=== PATIENT | female | born 1935 | race Caucasian/White ===

== ENCOUNTER → 2016-07-06 | Outpatient (CLI) | payer MEDICARE ==
--- NOTE | 2016-07-06 14:47 | XR ---
EXAMINATION TYPE: XR chest 2V DATE OF EXAM: 07/06/2016 2:29 PM COMPARISON: 05/31/2015 HISTORY: 80-year-old female after scarring heart disease, hypertension TECHNIQUE: Frontal and lateral views FINDINGS: Left anterior chest wall ICD generator with right ventricular lead. Median sternotomy wires are prese nt with post-CABG clips in the mediastinum. Partially visualized ACDF hardware. Heart remains upper limits of normal in size. Continued elevation of the left hemidiaphragm. No conso lidation or pleural effusion. IMPRESSION: Continued elevation of the left hemidiaphragm. No acute pulmonary process.
== END ==
LOC: RADXRMAIN 14:13
PROVIDERS: ATTEND Internal Medicine
DX: I25.10 Atherosclerotic heart disease of native coronary artery without angina pectoris (principal); I10 Essential (primary) hypertension
CPT/HCPCS: 71020

== ENCOUNTER 2017-09-20 13:01 | Emergency (ER) | payer MEDICARE ==
[2017-09-20 13:06] VITALS: RESP 18
--- NOTE | 2017-09-20 13:33 | ED ---
General Adult HPI - General Chief complaint: Extremity Injury, Lower Stated complaint: fall, rt knee injury Time Seen by Provider: 09/20/17 13:05 Source: patient, RN notes reviewed Mode of arrival: wheelchair Limitations: no limitations - History of Present Illness Initial comments: This is an 81-year-old female who comes in Any of right knee pain. Patient states the pain is in the inferior aspect of the right knee. Patient states she missed a step at home and since then is having some right knee pain patient denies any hip or ankle pain. Patient denies any swelling. Patient states when she sits down is very difficult to get up when she moves around she feels a lot better and is able to get around but getting up from a sitting position is quite difficult. - Related Data Home Medications Medication Instructions Recorded Confirmed Aspirin 162 mg PO DAILY 08/27/13 09/20/17 Carvedilol [Coreg] 12.5 mg PO BID 08/27/13 09/20/17 Quinapril HCl [Accupril] 10 mg PO DAILY 08/27/13 09/20/17 Sotalol [Betapace] 120 mg PO BID 08/27/13 09/20/17 glipiZIDE [Glucotrol] 5 mg PO BID 08/27/13 09/20/17 metFORMIN HCL [Metformin HCl ER] 1,000 mg PO HS 08/27/13 09/20/17 Spironolactone [Aldactone] 12.5 mg PO DAILY 09/20/13 09/20/17 Simvastatin [Zocor] 40 mg PO QAM 05/31/15 09/20/17 Levothyroxine Sodium [Synthroid] 88 mcg PO DAILY 09/20/17 09/20/17 Previous Rx's Medication Instructions Recorded Clopidogrel Bisulfate [Plavix] 75 mg PO DAILY #30 tab 06/02/15 Hydrocodone/Acetaminophen [[place] 0.5 tab PO Q4HR PRN #9 tab 09/20/17 5-325] Allergies Allergy/AdvReac Type Severity Reaction Status Date / Time No Known Allergies Allergy Verified 09/20/17 13:21 Review of Systems ROS Statement: Those systems with pertinent positive or pertinent negative responses have been documented in the HPI. ROS Other: All systems not noted in ROS Statement are negative. Past Medical History Past Medical History: CVA/TIA, Diabetes Mellitus, Pulmonary Embolus (PE), Thyroid Disorder Additional Past Medical History / Comment(s): ventricular tachycardia, TIA 2013 History of Any Multi-Drug Resistant Organisms: None Reported Past Surgical History: AICD, Cardiac Ablation, Cholecystectomy, Coronary Bypass/ CABG, Hysterectomy Additional Past Surgical History / Comment(s): cervical fusion, quad. bypass Past Anesthesia/Blood Transfusion Reactions: No Reported Reaction Type of Cardiac Device: AICD Device Placement Date:: 2008 Past Psychological History: No Psychological Hx Reported Smoking Status: Never smoker Past Alcohol Use History: Rare Past Drug Use History: None Reported - Past Family History Mother Family Medical History: Dementia Father Family Medical History: Myocardial Infarction ([place]) General Exam - General Exam Comments Initial Comments: GENERAL Patient is well-developed and well-nourished. Patient is in mild distress. EYES Patient's pupils are equal and round. Extraocular motion is intact SKIN Unremarkable NEURO The patient is alert and oriented 3 PYSCH Patient has normal interpersonal interactions. MUSCULOSKELETAL Right knee patient has tenderness at the patellar tendon. There is no obvious swelling. There is no ligamentous laxity noted however she does have medial lateral pain with strain Limitations: no limitations Course Vital Signs 09/20/17 13:04 Temperature 98.4 F Pulse Rate 67 Respiratory 18 Rate Blood Pressure 98/61 O2 Sat by Pulse 96 Oximetry Medical Decision Making - Medical Decision Making X-ray was suspicious of a tibial plateau fracture site CAT scan the knee that showed a definite tibial plateau fracture with vertical component. I spoke with Rina segura [facility] he wanted the patient in a knee immobilizer and to follow-up with them in the office. Disposition Clinical Impression: Tibial plateau fracture Disposition: HOME SELF-CARE Instructions: Leg Fracture (ED) Prescriptions: Hydrocodone/Acetaminophen [[place] 5-325] 0.5 tab PO Q4HR PRN #9 tab PRN Reason: Pain Is patient prescribed a controlled substance at d/c from ED?: Yes When asked, does pt state using other controlled substances?: No If prescribed controlled substance>3 days was MAPS reviewed?: Prescribed <3 Days If opioid is for acute pain is fill amount 7 days or less?: Yes Referrals: Ko Cisneros MD [Primary Care Provider] - 1-2 days Time of Disposition: 16:36
--- NOTE | 2017-09-20 14:12 | XR ---
EXAMINATION TYPE: XR knee complete RT DATE OF EXAM: 09/20/2017 COMPARISON: NONE HISTORY: 80-year-old female right knee pain after fall on patella. TECHNIQUE: 3 views FINDINGS: Osteopenia. Possible subtle depression of the articular surface of the lateral tibial plateau versus projectional artifact. There is tricompartmental degenerative spurring. Small knee joint effusion. Ex tensor mechanism intact. IMPRESSION: Osteopenia with possible minimally depressed lateral tibial plateau fracture versus projectional cyril fact. Small knee joint effusion.
--- NOTE | 2017-09-20 15:15 | CT ---
EXAMINATION TYPE: CT knee RT wo con DATE OF EXAM: 09/20/2017 COMPARISON: Radiograph same day HISTORY: 81-year-old female Right knee pain after fall injury TECHNIQUE: Contiguous axial scanning of the right knee without IV contrast. Coronal and sagittal reyes nstructions performed. CT DLP: 263 mGycm Automated exposure control for dose reduction was used. FINDINGS: A mildly comminuted impaction fracture of the articular surface of the lateral tibial plateau. A larg e articular based impaction fracture fragment within the anterior weightbearing aspect of the lateral tibial plateau measures 1.6 cm wide by 1.5 cm craniocaudal by 1.7 cm AP. This is depressed by 3 mm a nd slightly rotated laterally. Additional vertical component of the fracture oriented in the sagittal plane along the anterolateral margin of the epiphysis and metaphysis. Fracture extends centrally to involve the lateral tibial spine. There is a moderate knee joint effusion. Degenerative joint space narrowing and tricompartmental dege nerative spurring. Extensor mechanism is intact no Maddox's cyst. No patellar fracture. IMPRESSION: 1. MILDLY COMMINUTED IMPACTION FRACTURE INVOLVING THE ARTICULAR SURFACE OF THE LATERAL TIBIAL PLATEAU . THERE IS 3 MM OF DEPRESSION OF THE ARTICULAR SURFACE AND SLIGHT LATERAL ROTATION OF THE 1.7 CM FRAC TURE FRAGMENT. 2. A COMPONENT OF THE FRACTURE HAS A VERTICAL COMPONENT THROUGH THE ANTEROLATERAL EPIPHYSIS AND METAP HYSIS AND THE FRACTURE ALSO EXTENDS CENTRALLY TO INVOLVE THE LATERAL TIBIAL SPINE. 3. MODERATE KNEE JOINT EFFUSION. 4. TRICOMPARTMENTAL OSTEOARTHROSIS.
[2017-09-20 16:48] VITALS: BP 122/67; PULSE 66; TEMP 98
== END 2017-09-20 16:56 | disposition home or self-care (01) ==
LOC: EC 13:01
DX: S82.141A Displaced bicondylar fracture of right tibia, initial encounter for closed fracture (principal); E11.9 Type 2 diabetes mellitus without complications; E07.9 Disorder of thyroid, unspecified; Z86.73 Personal history of transient ischemic attack (TIA), and cerebral infarction without residual deficits; Z86.711 Personal history of pulmonary embolism; Z79.82 Long term (current) use of aspirin; Z79.84 Long term (current) use of oral hypoglycemic drugs; Z79.899 Other long term (current) drug therapy; Z95.1 Presence of aortocoronary bypass graft; Z95.810 Presence of automatic (implantable) cardiac defibrillator; W01.0XXA Fall on same level from slipping, tripping and stumbling without subsequent striking against object, initial encounter; Y92.009 Unspecified place in unspecified non-institutional (private) residence as the place of occurrence of the external cause
CPT/HCPCS: 73562; 73700; 99284; L1830 ×2

== ENCOUNTER 2017-11-09 14:22 | Emergency (ER) | payer MEDICARE ==
--- NOTE | 2017-11-09 14:39 | ED ---
General Adult HPI - General Chief complaint: Shortness of Breath Stated complaint: Dyspnea Time Seen by Provider: 11/09/17 14:27 Source: patient, EMS, RN notes reviewed Mode of arrival: EMS Limitations: no limitations - History of Present Illness Initial comments: Patient is a pleasant 81-year-old female presenting to the emergency Department with complaints of difficulty in breathing. Onset of symptoms was this morning. Patient has also felt somewhat lightheaded and fatigued. Patient states it's difficult for her to walk just a few steps. Patient unclear of history of previous similar symptoms. Patient denies any chest discomfort. No cough or fever. No leg pain or leg swelling. Patient has had a couple episodes of diarrhea. No black tarry stool. - Related Data Home Medications Medication Instructions Recorded Confirmed Aspirin 81 mg PO DAILY 08/27/13 11/09/17 Carvedilol [Coreg] 12.5 mg PO BID 08/27/13 11/09/17 Quinapril HCl [Accupril] 10 mg PO DAILY 08/27/13 11/09/17 Sotalol [Betapace] 120 mg PO BID 08/27/13 11/09/17 glipiZIDE [Glucotrol] 5 mg PO BID 08/27/13 11/09/17 metFORMIN HCL [Metformin HCl ER] 1,000 mg PO HS 08/27/13 11/09/17 Spironolactone [Aldactone] 12.5 mg PO DAILY 09/20/13 11/09/17 Simvastatin [Zocor] 40 mg PO QAM 05/31/15 11/09/17 Levothyroxine Sodium [Synthroid] 88 mcg PO DAILY 09/20/17 11/09/17 Multivitamins, Thera [Multivitamin 1 tab PO DAILY 11/09/17 11/09/17 (formulary)] Previous Rx's Medication Instructions Recorded Clopidogrel Bisulfate [Plavix] 75 mg PO DAILY #30 tab 06/02/15 Allergies Allergy/AdvReac Type Severity Reaction Status Date / Time No Known Allergies Allergy Verified 11/09/17 14:42 Review of Systems ROS Statement: Those systems with pertinent positive or pertinent negative responses have been documented in the HPI. ROS Other: All systems not noted in ROS Statement are negative. Constitutional: Denies: fever Eyes: Denies: eye pain ENT: Denies: ear pain Respiratory: Reports: dyspnea. Denies: cough Cardiovascular: Denies: chest pain Endocrine: Reports: fatigue Gastrointestinal: Reports: diarrhea. Denies: abdominal pain Genitourinary: Denies: dysuria Musculoskeletal: Denies: back pain Skin: Denies: rash Neurological: Denies: headache Past Medical History Past Medical History: CVA/TIA, Diabetes Mellitus, Myocardial Infarction ([place]), Pulmonary Embolus (PE), Thyroid Disorder Additional Past Medical History / Comment(s): ventricular tachycardia, TIA 2013 History of Any Multi-Drug Resistant Organisms: None Reported Past Surgical History: AICD, Cardiac Ablation, Cholecystectomy, Coronary Bypass/ CABG, Hysterectomy Additional Past Surgical History / Comment(s): cervical fusion, quad. bypass Past Anesthesia/Blood Transfusion Reactions: No Reported Reaction Type of Cardiac Device: AICD Device Placement Date:: 2008 Past Psychological History: No Psychological Hx Reported Smoking Status: Never smoker Past Alcohol Use History: Rare Past Drug Use History: None Reported - Past Family History Mother Family Medical History: Dementia Father Family Medical History: Myocardial Infarction ([place]) General Exam Limitations: no limitations General appearance: alert, in no apparent distress Head exam: Present: atraumatic Eye exam: Present: normal appearance, PERRL ENT exam: Present: normal oropharynx Neck exam: Present: normal inspection Respiratory exam: Present: normal lung sounds bilaterally Cardiovascular Exam: Present: regular rate, normal rhythm GI/Abdominal exam: Present: soft. Absent: tenderness Extremities exam: Present: normal inspection. Absent: pedal edema, calf tenderness Neurological exam: Present: alert Psychiatric exam: Present: normal affect, normal mood Skin exam: Present: normal color Course Vital Signs 11/09/17 11/09/17 14:29 14:43 Temperature 96.9 F L Pulse Rate 84 Respiratory 26 H 26 H Rate Blood Pressure 125/69 O2 Sat by Pulse 98 Oximetry - Reevaluation(s) Reevaluation #1: 11/09/17 16:06 Case was discussed in detail with Dr. Sena who does recommend talking with Dr. Martinez, vascular surgeon and [facility]. He did not feel patient needed to be intubated at this time. Case was discussed with Dr. Martinez who will accept patient for transfer for thrombolysis. Patient and family updated. They're having family discussion regarding having the procedure done. 11/09/17 16:21 Discussion again had with patient and family and they are agreeable with having procedure done and transfer. Case was also discussed with Dr. Cevallos and [facility] Cornejo, who will accept transfer. EKG Findings - EKG Comments: EKG Findings:: Sinus rhythm at 71. AK 190. QRS 116. QT 444. QTC 482. Normal axis. Incomplete right bundle-branch block. PVCs present. Borderline inferior Q waves. Nonspecific ST-T. Previous EKG reviewed dated 06/01/2015. Medical Decision Making - Lab Data Result diagrams: 11/09/17 14:31 11/09/17 14:31 Lab Results 11/09/17 11/09/17 11/09/17 Range/Units 14:31 14:31 14:31 WBC 9.0 (3.8-10.6) k/uL RBC 3.83 (3.80-5.40) m/uL Hgb 11.3 L (11.4-16.0) gm/dL Hct 35.9 (34.0-46.0) % MCV 93.8 (80.0-100.0) fL MCH 29.6 (25.0-35.0) pg MCHC 31.6 (31.0-37.0) g/dL RDW 12.8 (11.5-15.5) % Plt Count 178 (150-450) k/uL Neutrophils % 79 % Lymphocytes % 13 % Monocytes % 5 % Eosinophils % 1 % Basophils % 1 % Neutrophils # 7.2 (1.3-7.7) k/uL Lymphocytes # 1.2 (1.0-4.8) k/uL Monocytes # 0.4 (0-1.0) k/uL Eosinophils # 0.1 (0-0.7) k/uL Basophils # 0.1 (0-0.2) k/uL Hypochromasia Slight PT (9.0-12.0) sec INR (<1.2) APTT (22.0-30.0) sec D-Dimer (<0.60) mg/L FEU Sodium 137 (137-145) mmol/L Potassium 5.3 H (3.5-5.1) mmol/L Chloride 106 (98-107) mmol/L Carbon Dioxide 22 (22-30) mmol/L Anion Gap 9 mmol/L BUN 25 H (7-17) mg/dL Creatinine 0.91 (0.52-1.04) mg/dL Est GFR (CKD-EPI)AfAm 67 (>60 ml/min/1.73 sqM) Est GFR (CKD-EPI)NonAf 59 (>60 ml/min/1.73 sqM) Glucose 211 H (74-99) mg/dL Calcium 9.1 (8.4-10.2) mg/dL Total Bilirubin 0.8 (0.2-1.3) mg/dL AST 22 (14-36) U/L ALT 20 (9-52) U/L Alkaline Phosphatase 66 (38-126) U/L Total Creatine Kinase 34 (30-135) U/L CK-MB (CK-2) 2.2 (0.0-2.4) ng/mL CK-MB (CK-2) Rel Index 6.5 Troponin I 0.419 H* (0.000-0.034) ng/mL NT-Pro-B Natriuret Pep pg/mL Total Protein 6.1 L (6.3-8.2) g/dL Albumin 3.5 (3.5-5.0) g/dL 11/09/17 11/09/17 Range/Units 14:31 14:31 WBC (3.8-10.6) k/uL RBC (3.80-5.40) m/uL Hgb (11.4-16.0) gm/dL Hct (34.0-46.0) % MCV (80.0-100.0) fL MCH (25.0-35.0) pg MCHC (31.0-37.0) g/dL RDW (11.5-15.5) % Plt Count (150-450) k/uL Neutrophils % % Lymphocytes % % Monocytes % % Eosinophils % % Basophils % % Neutrophils # (1.3-7.7) k/uL Lymphocytes # (1.0-4.8) k/uL Monocytes # (0-1.0) k/uL Eosinophils # (0-0.7) k/uL Basophils # (0-0.2) k/uL Hypochromasia PT 10.5 (9.0-12.0) sec INR 1.1 (<1.2) APTT 22.8 (22.0-30.0) sec D-Dimer 11.25 H (<0.60) mg/L FEU Sodium (137-145) mmol/L Potassium (3.5-5.1) mmol/L Chloride (98-107) mmol/L Carbon Dioxide (22-30) mmol/L Anion Gap mmol/L BUN (7-17) mg/dL Creatinine (0.52-1.04) mg/dL Est GFR (CKD-EPI)AfAm (>60 ml/min/1.73 sqM) Est GFR (CKD-EPI)NonAf (>60 ml/min/1.73 sqM) Glucose (74-99) mg/dL Calcium (8.4-10.2) mg/dL Total Bilirubin (0.2-1.3) mg/dL AST (14-36) U/L ALT (9-52) U/L Alkaline Phosphatase (38-126) U/L Total Creatine Kinase (30-135) U/L CK-MB (CK-2) (0.0-2.4) ng/mL CK-MB (CK-2) Rel Index Troponin I (0.000-0.034) ng/mL NT-Pro-B Natriuret Pep 1820 pg/mL Total Protein (6.3-8.2) g/dL Albumin (3.5-5.0) g/dL - Radiology Data Radiology results: image reviewed (Computed tomography scan of the chest shows bilateral pulmonary embolism starting at the distal main. There is also flattening of the cardiac septum. Chest x-ray shows no acute process.) Critical Care Time Critical Care Time: Yes Total Critical Care Time: 33 Disposition Clinical Impression: Acute massive pulmonary embolism Disposition: OTHER INSTITUTION NOT DEFINED Condition: Serious Is patient prescribed a controlled substance at d/c from ED?: No Referrals: Ko Cisneros MD [Primary Care Provider] - 1-2 days Time of Disposition: 16:23 - Out of Hospital Transfer - Req. Specs Out of Hospital Transfer - Requested Specifics: Other Emergency Center
[2017-11-09 14:56] LABS: Basophils # (A) 0.1 k/uL (0-0.2); Basophils % (A) 1 %; Eosinophils # (A) 0.1 k/uL (0-0.7); Eosinophils % (A) 1 %; HCT 35.9 % (34.0-46.0); HGB 11.3 gm/dL (11.4-16.0); Hypochromasia Slight; Lymphocytes # (A) 1.2 k/uL (1.0-4.8); Lymphocytes % (A) 13 %; MCH 29.6 pg (25.0-35.0); MCHC 31.6 g/dL (31.0-37.0); MCV 93.8 fL (80.0-100.0); Mean Platelet Volume 9.2; Monocytes # (A) 0.4 k/uL (0-1.0); Monocytes % (A) 5 %; Neutrophils # (A) 7.2 k/uL (1.3-7.7); Neutrophils % (A) 79 %; Platelet Count 178 k/uL (150-450); RBC 3.83 m/uL (3.80-5.40); RDW 12.8 % (11.5-15.5)
--- NOTE | 2017-11-09 14:59 | XR ---
EXAMINATION TYPE: XR chest 2V DATE OF EXAM: 11/09/2017 COMPARISON: 07/06/2016 HISTORY: Shortness of breath TECHNIQUE: Frontal and lateral views of the chest are obtained. FINDINGS: Scattered senescent parenchymal changes noted. Hyperinflation compatible with COPD. No evidence for infiltrate. No evidence for atelectasis. Chronic elevation left hemidiaphragm. Heart size is stable. Mediastinal structures are stable and grossly unremarkable. No evidence for hilar prominence. Degenerative changes dorsal spine. IMPRESSION: 1. No evidence for acute pulmonary disease.
[2017-11-09 15:05] LABS: Albumin 3.5 g/dL (3.5-5.0); Calcium 9.1 mg/dL (8.4-10.2); Potassium 5.3 mmol/L (3.5-5.1); Total Bilirubin 0.8 mg/dL (0.2-1.3); Total Protein 6.1 g/dL (6.3-8.2)
[2017-11-09 15:10] LABS: ABG Base Excess -1.6 mmol/L; ABG HCO3 23 mmol/L (21-25); ABG Oxygen Saturation 78.9 % (94-97); ABG PCO2 33 mmHg (35-45); ABG PH 7.44 (7.35-7.45); ABG TCO2 24 mmol/L (19-24)
[2017-11-09 15:23] LABS: INR 1.1 (<1.2); Partial Thromboplastin Time 22.8 sec (22.0-30.0); Prothrombin Time 10.5 sec (9.0-12.0)
[2017-11-09 15:27] LABS: D-Dimer 11.25 mg/L FEU (<0.60)
[2017-11-09 15:28] LABS: Creatine Kinase MB 2.2 ng/mL (0.0-2.4)
[2017-11-09 15:38] LABS: Troponin I 0.419 ng/mL (0.000-0.034)
[2017-11-09] MEDS ORDERED: HEPARIN SODIUM,PORCINE 5,000 UNIT/ML 1 ML VIAL IV PRN (15:45)
[2017-11-09] MEDS ORDERED: HEPARIN SOD,PORK IN 0.45% NACL 25,000 UNIT in 0.45% NACL 1 500ML.BAG IV SCH (15:45)
[2017-11-09] MEDS ORDERED: HEPARIN SODIUM,PORCINE 10,000 UNIT/ML 1 ML VIAL IV ONE (15:45)
--- NOTE | 2017-11-09 16:06 | CT ---
EXAMINATION TYPE: CT angio chest DATE OF EXAM: 11/09/2017 COMPARISON: Radiograph same day HISTORY: 81-year-old female Shortness of breath, history of PE. TECHNIQUE: Contiguous axial scanning of the chest performed with IV Contrast, patient injected with 8 0 mL of Isovue 370. Coronal/sagittal MIP reconstructions performed. CT DLP: 268.6 mGycm Automated exposure control for dose reduction was used. FINDINGS: Heart is enlarged with left atrial and left ventricular dilatation. However, there is flattening and slight leftward bowing of the intraventricular septum which is very suspicious despite the left ventr icle remaining larger than the right. Median sternotomy wires are present with post-CABG changes. 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 Bovine configuration to the aortic arch. Large caliber to the main right and left pulmonary arteries at 2.8 and 3.0 cm, respectively. There is moderate burden of bilateral pulmonary emboli, right greater than left extending from the bilateral distal main pulmonary arteries throughout the lobar branches and some of the proximal segmental branc hes. No thoracic lymphadenopathy. No consolidation or pleural effusion. Chronic volume loss at the left base with elevation of the left hemidiaphragm. Small hiatal hernia. Visualized upper abdomen shows no gross evaluate. Bones: ACDF hardware. Left anterior chest wall AICD generator with right atrial and right ventricular leads. IMPRESSION: 1. EXAM POSITIVE FOR BILATERAL PULMONARY EMBOLI WITH MODERATE BURDEN, RIGHT GREATER THAN LEFT. CLOT E XTENDS FROM THE DISTAL ASPECT OF THE MAIN PULMONARY ARTERIES THROUGHOUT THE LOBAR BRANCHES. 2. PULMONARY ARTERIAL HYPERTENSION WITH INTERVENTRICULAR SEPTAL FLATTENING WHICH IS VERY SUSPICIOUS F OR RIGHT HEART STRAIN. UNDERLYING LA AND LV DILATATION LIKELY SECONDARY TO CHRONIC CHF. THIS DOES NOT ALLOW FOR ABNORMAL ELEVATION OF THE RV LV RATIO. 3. SMALL HIATAL HERNIA. Critical findings called to Dr. Raya in the ER at 3:50 PM.
[2017-11-09 16:42] LABS: ABG PO2 42 mmHg (83-108)
[2017-11-09 16:53] VITALS: BP 128/65; PULSE 66; RESP 22; TEMP 97.3
== END 2017-11-09 16:50 | disposition other institution (70) ==
LOC: EC 14:22
DX: I26.99 Other pulmonary embolism without acute cor pulmonale (principal); E11.9 Type 2 diabetes mellitus without complications; I25.2 Old myocardial infarction; E07.9 Disorder of thyroid, unspecified; Z79.82 Long term (current) use of aspirin; Z79.84 Long term (current) use of oral hypoglycemic drugs; Z79.899 Other long term (current) drug therapy; Z95.810 Presence of automatic (implantable) cardiac defibrillator; Z95.1 Presence of aortocoronary bypass graft
CPT/HCPCS: 36415; 36600; 71046; 71275; 80053; 82550; 82553; 82805; 83880; 84484; 85025; 85379; 85610; 85730; 93005; 96365; 96376; 99291

== ENCOUNTER → 2019-03-28 | Outpatient (CLI) | payer MEDICARE, OTHER ==
[2019-03-28 12:41] LABS: HCT 38.5 % (34.0-46.0); MCH 24.4 pg (25.0-35.0); MCV 93.7 fL (80.0-100.0); Mean Platelet Volume 9.6; Platelet Count 181 k/uL (150-450); RBC 4.11 m/uL (3.80-5.40); RDW 12.4 % (11.5-15.5); WBC 6.7 k/uL (3.8-10.6)
[2019-03-28 12:42] LABS: Potassium 4.3 mmol/L (3.5-5.1)
== END | disposition home or self-care (01) ==
LOC: LABPAT 11:18
PROVIDERS: ATTEND Internal Medicine Clinical Cardiac Electrophysiology
DX: Z01.812 Encounter for preprocedural laboratory examination (principal); I25.5 Ischemic cardiomyopathy; I47.2 Ventricular tachycardia
CPT/HCPCS: 36415; 80051; 82565; 82947; 84520; 85027

== ENCOUNTER 2019-04-10 08:35 | Day surgery (SDC) | payer MEDICARE, OTHER ==
[2019-04-04 16:14] VITALS: BMI 27.8
[~2019-04-10 08:35] MED LIST: LACTATED RINGERS 1,000 ML IV SCH; SODIUM CHLORIDE 0.9% 1,000 ML IV SCH
[2019-04-10] MEDS ORDERED: ceFAZolin 1,000 MG in SODIUM CHLORIDE 0.9% IRRIGATIO 250 ML IRRIGATION ONE (09:00)
[2019-04-10 09:16] LABS: Glucose,Whole Blood 178 mg/dL (75-99)
[2019-04-10] MEDS ORDERED: SODIUM CHLORIDE 0.9% 500 ML 500 ML IV ONE (09:29)
[2019-04-10] MEDS ORDERED: LIDOCAINE 1% INJ 10MG/ML (20 ML MDV) ONE (09:30)
[2019-04-10] MEDS ORDERED: PROPOFOL 10 MG/ML 20 ML VIAL IV ONE (10:08)
[2019-04-10] MEDS ORDERED: fentaNYL (PF) 50 MCG/ML 2 ML AMP ONE (10:08)
[2019-04-10] MEDS ORDERED: MIDAZOLAM 2 MG/2 ML VIAL ONE (10:08)
[2019-04-10] MEDS ORDERED: LIDOCAINE 1% INJ 10MG/ML (20 ML MDV) SQ ONE (11:05)
[2019-04-10] MEDS ORDERED: ACETAMINOPHEN TAB 325 MG TAB PO PRN (11:42)
[2019-04-10 12:05] LABS: Glucose,Whole Blood 141 mg/dL (75-99)
--- NOTE | 2019-04-10 12:26 | CE ---
CARDIAC ELECTROPHYSIOLOGY REPORT Marce Marti is an 83-year-old female with known cardiomyopathy. She has history of class 3 CHF, a single-chamber ICD originally implanted for ventricular fibrillation. She has known coronary artery disease, status post coronary artery bypass grafting, old myocardial infarction and ischemic cardiomyopathy. She is on sotalol for suppression of VT. Her device is at [facility] and she is brought in for an ICD generator change. Patient was brought to the EP lab in a fasting state. Written informed consent was obtained prior to the procedure. The left shoulder area was prepped and draped as per protocol and 1% lidocaine was used for local anesthesia. An incision was made directly over the previous surgical site and carried down to the level of the generator. The generator was explanted. The leads were inspected. The partial capsulectomy was performed. Pocket was irrigated with antibiotic solution. The new generator was implanted and secured to the underlying pectoralis muscle and the wound was closed in 3 layers and dressed per protocol. The explanted generator was a [employer] ICD model #K254OIX Virtuoso II VR, serial #[id number]. The newly implanted generator was Medtronic Visia model #AKKN8K9, serial #[id number]. The patient has a [employer] ICD lead model #0185, serial #[id number] that was originally implanted in June of 2004. The pacing threshold 0.75 V at 0.4 milliseconds, pacing impedance of 361 ohms. R-waves 8.8 mV. DFT TESTING UNDER ANESTHESIA: Shock and T-wave protocol was used to induce ventricular fibrillation this was adequately and appropriately detected at least sensitivity and successfully internally defibrillated with a 10-joule shock. The charge time was 2 seconds. Shock impedance 41 ohms. No post shock noise. No drop outs. The device was then programmed to detect VT at 154 beats per minute and VF at 210 beats per minute. Appropriate antitachycardia pacing cardioversion and defibrillation programmed. First cardioversion 10 joules and first defibrillation at 20 joules. The patient tolerated the procedure well without any acute complications. RESULT: Successful single-chamber ICD generator change. DFT at or below 10 joules. MMODL / IJN: [id number] /
--- NOTE | 2019-04-10 12:26 | LTR ---
April 10, 2019 Re: Marce Marti Dear Ko: Marce Marti underwent an ICD generator change successfully without any acute complications. As you know, she has a history of ventricular fibrillation and VT and is on sotalol. Her medications will remain unchanged and she will continue to follow with you and we will see her in the device clinic in about 5 days. Thank you for entrusting us in the care of your patient. Warm regards. Sincerely, MD ESTELLA Panda / ALEX: [id number] /
[2019-04-10] MEDS: glipiZIDE 5 MG TAB PO SCH ×2 (14:31)
[2019-04-10] MEDS: SOTALOL 120 MG TAB PO SCH ×2 (14:31→20:04)
[2019-04-10] MEDS: CARVEDILOL 12.5 MG TAB PO SCH ×2 (14:31)
[2019-04-10] MEDS: LEVOTHYROXINE 88 MCG TAB PO SCH (14:31)
[2019-04-10 15:52] VITALS: RESP 18
[2019-04-10 16:40] LABS: Glucose,Whole Blood 119 mg/dL (75-99)
[2019-04-10 19:56] LABS: Glucose,Whole Blood 93 mg/dL (75-99)
[2019-04-10] MEDS ORDERED: metFORMIN 500 MG TAB PO SCH (21:00)
[2019-04-11] MEDS: LEVOTHYROXINE 88 MCG TAB PO SCH (03:09)
[2019-04-11 06:36] LABS: Glucose,Whole Blood 123 mg/dL (75-99)
[2019-04-11 07:30] VITALS: BP 145/76; PULSE 58; TEMP 97.3
[2019-04-11] MEDS: CARVEDILOL 12.5 MG TAB PO SCH (08:38)
[2019-04-11] MEDS: glipiZIDE 5 MG TAB PO SCH (08:38)
[2019-04-11] MEDS: SOTALOL 120 MG TAB PO SCH (08:39)
[2019-04-11] MEDS ORDERED: ASPIRIN 81 MG PO SCH (09:00)
[2019-04-11] MEDS ORDERED: SPIRONOLACTONE 25 MG TAB PO SCH (09:00)
[2019-04-11] MEDS ORDERED: CLOPIDOGREL 75 MG TAB PO SCH (09:00)
[2019-04-11] MEDS ORDERED: LISINOPRIL 10 MG TAB PO SCH (09:00)
[2019-04-11] MEDS ORDERED: ATORVASTATIN 20 MG TAB PO SCH (09:00)
--- NOTE | 2019-04-11 10:06 | P.DS ---
Providers Attending physician: Noah Johnson Primary care physician: [facility] Hospital Course: This is a pleasant 83-year-old female past medical history significant for ischemic cardiomyopathy, hypertension, coronary artery disease and history of ventricular tachycardia and fibrillation. She underwent successful single- chamber ICD generator change with DFT out of 10 J. Insertion site is clean, dry and intact with dressing in place. No evidence of erythema, drainage tenderness or swelling. She is seen and examined resting comfortably and plan the chest. She has no symptoms of chest pain, shortness of breath, dizziness or palpitations. Blood pressure is 145/76 heart rate 58 afebrile maintaining oxygen saturation. Currently maintained on aspirin 81 mg daily, atorvastatin 20 mg daily, carvedilol 12.5 mg twice a day, Plavix 75 mg daily, lisinopril 10 mg daily, sotalol 120 mg twice a day and Aldactone 12.5 mg daily. Follow-up in the office with Dr. Swartz in one week and Dr. Miles in 3 months. She has been advised to keep the insertion area clean and dry for 5 days. Plan - Discharge Summary Discharge Rx Participant: Yes New Discharge Prescriptions: Continue Aspirin 81 mg PO DAILY Carvedilol [Coreg] 12.5 mg PO BID Sotalol [Betapace] 120 mg PO BID metFORMIN HCL [Metformin HCl ER] 1,000 mg PO HS glipiZIDE [Glucotrol] 5 mg PO BID Quinapril HCl [Accupril] 10 mg PO DAILY Spironolactone [Aldactone] 12.5 mg PO DAILY Simvastatin [Zocor] 40 mg PO QAM Clopidogrel Bisulfate [Plavix] 75 mg PO DAILY #30 tab Levothyroxine Sodium [Synthroid] 88 mcg PO DAILY Multivitamins, Thera [Multivitamin (formulary)] 1 tab PO DAILY Discharge Medication List Aspirin 81 mg PO DAILY 08/27/13 [History] Carvedilol [Coreg] 12.5 mg PO BID 08/27/13 [History] Quinapril HCl [Accupril] 10 mg PO DAILY 08/27/13 [History] Sotalol [Betapace] 120 mg PO BID 08/27/13 [History] glipiZIDE [Glucotrol] 5 mg PO BID 08/27/13 [History] metFORMIN HCL [Metformin HCl ER] 1,000 mg PO HS 08/27/13 [History] Spironolactone [Aldactone] 12.5 mg PO DAILY 09/20/13 [History] Simvastatin [Zocor] 40 mg PO QAM 05/31/15 [History] Clopidogrel Bisulfate [Plavix] 75 mg PO DAILY #30 tab 06/02/15 [Rx] Levothyroxine Sodium [Synthroid] 88 mcg PO DAILY 09/20/17 [History] Multivitamins, Thera [Multivitamin (formulary)] 1 tab PO DAILY 11/09/17 [History] Follow up Appointment(s)/Referral(s): Noah Johnson MD [STAFF PHYSICIAN] - As Needed (Follow-up with Dr. Johnson in 4 months) Dona Davison MD [STAFF PHYSICIAN] - 1 Week Activity/Diet/Wound Care/Special Instructions: Keep wound dry for 5 days No changes in medications Discharge Disposition: HOME SELF-CARE
== END 2019-04-11 10:12 | disposition home or self-care (01) ==
LOC: CATHEP 08:35 → 1SOBS 11:34 → CATHEP 04-11 10:12
PROVIDERS: ATTEND Internal Medicine Clinical Cardiac Electrophysiology
DX: Z45.02 Encounter for adjustment and management of automatic implantable cardiac defibrillator (principal); I95.1 Orthostatic hypotension; I25.10 Atherosclerotic heart disease of native coronary artery without angina pectoris; I11.0 Hypertensive heart disease with heart failure; I50.9 Heart failure, unspecified; I47.2 Ventricular tachycardia; I49.01 Ventricular fibrillation; E78.5 Hyperlipidemia, unspecified; Z86.73 Personal history of transient ischemic attack (TIA), and cerebral infarction without residual deficits; Z95.1 Presence of aortocoronary bypass graft; E11.9 Type 2 diabetes mellitus without complications; Z82.49 Family history of ischemic heart disease and other diseases of the circulatory system; Z86.711 Personal history of pulmonary embolism; Z90.49 Acquired absence of other specified parts of digestive tract; Z98.890 Other specified postprocedural states; I25.2 Old myocardial infarction; Z79.84 Long term (current) use of oral hypoglycemic drugs; Z79.02 Long term (current) use of antithrombotics/antiplatelets; Z79.82 Long term (current) use of aspirin; Z79.890 Hormone replacement therapy; Z79.899 Other long term (current) drug therapy
CPT/HCPCS: 93641; 33262; C1722; J2250; J0690 ×2; J2001; J3010; J2704

== ENCOUNTER → 2019-08-30 | Outpatient (CLI) | payer MEDICARE, OTHER ==
[2019-08-30 16:40] LABS: African American GFR (CKD) 59.5 (60.0-200.0); Calcium 9.3 mg/dL (8.7-10.3); Chol/HDL Ratio 3.08; LDL Cholesterol,Calculated 53.6 mg/dL (0.0-131.0); Magnesium 1.5 mg/dL (1.5-2.4); Non-African American GFR(CKD) 51.3 (60.0-200.0); Potassium 4.5 mmol/L (3.5-5.5); VLDL Calculation 29.4 mg/dL (5.00-40.00)
== END | disposition home or self-care (01) ==
LOC: LABWHC1 09:04
PROVIDERS: ATTEND Physician Assistant
DX: E78.5 Hyperlipidemia, unspecified (principal); I50.9 Heart failure, unspecified
CPT/HCPCS: 36415; 80048; 80061; 83735; 84439; 84443

== ENCOUNTER 2020-01-14 14:44 | Inpatient (IN) | payer MEDICARE, OTHER ==
[2020-01-14] MEDS ORDERED: ACETAMINOPHEN TAB 325 MG TAB PO STA (15:14)
--- NOTE | 2020-01-14 15:21 | ED ---
General Adult HPI - General Chief complaint: Extremity Injury, Upper Stated complaint: R Arm Injury Time Seen by Provider: 01/14/20 14:56 Source: patient, RN notes reviewed Mode of arrival: wheelchair Limitations: no limitations - History of Present Illness Initial comments: 84-year-old female presents to the emergency room for a chief complaint of right arm pain. Patient reports that just prior to arrival she was stopping at door with an outstretched hand. She states the door was very heavy and caused immediate pain and swelling in the back of her hand and elbow. She states it is very painful to move her fingers. She states it is very painful to straighten out her elbow. Patient does take Plavix. Patient has no other complaints at this time including shortness of breath, chest pain, abdominal pain, nausea or vomiting, headache, or visual changes. - Related Data Home Medications Medication Instructions Recorded Confirmed Aspirin 81 mg PO DAILY 08/27/13 01/14/20 Carvedilol [Coreg] 12.5 mg PO BID-W/MEALS 08/27/13 01/14/20 Quinapril HCl [Accupril] 10 mg PO DAILY 08/27/13 01/14/20 glipiZIDE [Glucotrol] 5 mg PO BID-W/MEALS 08/27/13 01/14/20 Spironolactone [Aldactone] 12.5 mg PO DAILY 09/20/13 01/14/20 Simvastatin [Zocor] 40 mg PO DAILY 05/31/15 01/14/20 Levothyroxine Sodium [Synthroid] 88 mcg PO DAILY 09/20/17 01/14/20 Multivitamins, Thera [Multivitamin 1 tab PO DAILY 11/09/17 01/14/20 (formulary)] Sotalol HCl [Betapace] 80 mg PO BID-W/MEALS 01/14/20 01/14/20 metFORMIN HCL [Glucophage] 500 mg PO BID-W/MEALS 01/14/20 01/14/20 Previous Rx's Medication Instructions Recorded Clopidogrel Bisulfate [Plavix] 75 mg PO DAILY #30 tab 06/02/15 Allergies Allergy/AdvReac Type Severity Reaction Status Date / Time No Known Allergies Allergy Verified 01/14/20 16:34 Review of Systems ROS Statement: Those systems with pertinent positive or pertinent negative responses have been documented in the HPI. ROS Other: All systems not noted in ROS Statement are negative. Past Medical History Past Medical History: CVA/TIA, Diabetes Mellitus, Myocardial Infarction ([place]), Pulmonary Embolus ([place]), Thyroid Disorder Additional Past Medical History / Comment(s): ventricular tachycardia, TIA 2013 History of Any Multi-Drug Resistant Organisms: None Reported Past Surgical History: AICD, Cardiac Ablation, Cholecystectomy, Coronary Bypas s/CABG, Hysterectomy Additional Past Surgical History / Comment(s): cervical fusion, quad. bypass Past Anesthesia/Blood Transfusion Reactions: No Reported Reaction Type of Cardiac Device: AICD Device Placement Date:: 2008 Past Psychological History: No Psychological Hx Reported Past Alcohol Use History: Rare Past Drug Use History: None Reported - Past Family History Mother Family Medical History: Dementia Father Family Medical History: Myocardial Infarction ([place]) General Exam - General Exam Comments Initial Comments: Right upper ext: Patient has large contusion noted to the posterior aspect of the right hand as well as contusion to the right dorsal elbow. Radial pulse 2+ in RUE. Capillary refill less than 2 seconds in the right hand. Patient able to move all digits of the right hand although flexion is limited secondary to pain. Patient able to flex right elbow to 90 and extend to 140. No petechial bruising. Sensation intact. Patient has no other complaints at this time including shortness of breath, chest pain, abdominal pain, nausea or vomiting, headache, or visual changes. Limitations: no limitations General appearance: alert, in no apparent distress Head exam: Present: atraumatic, normocephalic, normal inspection Eye exam: Present: normal appearance ENT exam: Present: normal exam, mucous membranes moist Neck exam: Present: normal inspection. Absent: tenderness, meningismus, lymphadenopathy Respiratory exam: Present: normal lung sounds bilaterally. Absent: respiratory distress, wheezes, rales, rhonchi, stridor Cardiovascular Exam: Present: regular rate, normal rhythm, normal heart sounds. Absent: systolic murmur, diastolic murmur, rubs, gallop, clicks Course Vital Signs 01/14/20 01/14/20 14:45 20:02 Temperature 98.7 F Pulse Rate 61 66 Respiratory 18 18 Rate Blood Pressure 148/81 144/68 O2 Sat by Pulse 97 98 Oximetry EKG Findings - EKG Comments: EKG Findings:: Sinus bradycardia, ventricular rate 58, SC interval 210, QTc 459 Procedures - Orthopedic Splinting/Casting Injury #1 Side: left Upper Extremity Injury Location: elbow, wrist Upper Extremity Immobilizer: sugar tong splint (double) Additional Comments: NV intact after splint applied Medical Decision Making - Medical Decision Making Vitals are stable. Patient tried to stop a door today with her right arm when it was closing and had pain in her hand and elbow. Patient has difficulty extending the elbow. Has pain with movement of the fingers and wrist. Limited range of motion of the fingers wrist and elbow. Neurovascular status intact. X-ray of the right hand and forearm shows a distal metaphyseal radial fracture with intra-articular extension. X-ray of the right elbow shows proximal ulnar fracture with intra-articular extension and diastasis of the fracture fragments. Joint effusion noted. Discussed case with cira, he recommends admission under Dr. Shaw with double sugar tong splint - Lab Data Result diagrams: 01/14/20 18:01 01/14/20 18:01 Disposition Clinical Impression: Radial fracture, Ulnar fracture Disposition: ADMITTED IP TO THIS [facility] Is patient prescribed a controlled substance at d/c from ED?: No Time of Disposition: 17:20
--- NOTE | 2020-01-14 16:00 | XR ---
EXAMINATION TYPE: XR forearm RT DATE OF EXAM: 01/14/2020 COMPARISON: None HISTORY: Pain TECHNIQUE: 2 view right forearm FINDINGS: There is a distal radial metaphyseal fracture. This has intra-articular extension. Diffuse soft tissue swelling is present. Structures appear osteopenic. IMPRESSION: 1. Distal metaphyseal radial fracture with intra-articular extension
--- NOTE | 2020-01-14 16:01 | XR ---
EXAMINATION TYPE: XR hand complete RT DATE OF EXAM: 01/14/2020 COMPARISON: None HISTORY: Pain hit door TECHNIQUE: Three-view right hand FINDINGS: There is a distal metaphyseal radial fracture with intra-articular extension. Diffuse soft tissue swelling is present. Some diastases of the proximal portion of the fracture fragment is presen t. There is soft tissue swelling over the dorsum of the hand. Structures are osteopenic. Osseous structu res within the hand appear intact. No acute fracture within the hand is evident. IMPRESSION: 1. Distal metaphyseal radial fracture with intra-articular extension. 2. Prominent dorsal soft tissue swelling over the hand.
--- NOTE | 2020-01-14 16:02 | XR ---
EXAMINATION TYPE: XR elbow limited RT DATE OF EXAM: 01/14/2020 COMPARISON: None HISTORY: Pain TECHNIQUE: 2 view right elbow FINDINGS: There is an olecranon fracture. Prominent elevation of the anterior fat pad is evident. The re is some elevation of posterior fat pad. Prominent soft tissue swelling is present. The radius aligns normally with the humerus. IMPRESSION: 1. Proximal ulnar fracture with intra-articular extension and diastases of the fracture fragments. 2. Prominent soft tissue swelling over the fracture site. 3. Joint effusion
[2020-01-14] MEDS ORDERED: NALOXONE 0.4 MG/ML 1 ML VIAL IV PRN (17:14)
[2020-01-14] MEDS ORDERED: MORPHINE SULFATE 2 MG/ML SYRINGE IV PRN (17:14)
[2020-01-14] MEDS ORDERED: ONDANSETRON 4 MG/2 ML VIAL IVP PRN (17:14)
[2020-01-14 18:13] LABS: Basophils % (A) 0 %; Eosinophils # (A) 0.1 k/uL (0-0.7); Eosinophils % (A) 1 %; HCT 40.8 % (34.0-46.0); HGB 12.8 gm/dL (11.4-16.0); Lymphocytes # (A) 1.1 k/uL (1.0-4.8); Lymphocytes % (A) 11 %; MCH 29.4 pg (25.0-35.0); MCHC 31.4 g/dL (31.0-37.0); MCV 93.5 fL (80.0-100.0); Mean Platelet Volume 9.5; Monocytes # (A) 0.4 k/uL (0-1.0); Monocytes % (A) 4 %; Neutrophils # (A) 8.5 k/uL (1.3-7.7); Neutrophils % (A) 83 %; Platelet Count 187 k/uL (150-450); RBC 4.36 m/uL (3.80-5.40); RDW 12.6 % (11.5-15.5); WBC 10.3 k/uL (3.8-10.6)
[2020-01-14 18:21] LABS: Calcium 9.4 mg/dL (8.4-10.2); Potassium 4.2 mmol/L (3.5-5.1); Total Bilirubin 0.8 mg/dL (0.2-1.3); Total Protein 6.5 g/dL (6.3-8.2)
--- NOTE | 2020-01-14 19:17 | XR ---
EXAMINATION TYPE: XR chest 2V DATE OF EXAM: 01/14/2020 COMPARISON: Prior chest x-ray 11/09/2017 HISTORY: Preop. TECHNIQUE: Frontal and lateral views of the chest are obtained. FINDINGS: There is no focal air space opacity, pleural effusion, or pneumothorax seen. The cardiac silhouette size is within normal limits. The osseous structures are intact, cervical fusion present within the neck. Generators present in the left pectoral region, there is a defibrillator lead in th e right ventricle. Patient is post median sternotomy. Left hemidiaphragm is elevated. IMPRESSION: No acute cardiopulmonary process.
[2020-01-14] MEDS: SODIUM CHLORIDE 0.9% 1,000 ML IV SCH (20:04)
[2020-01-14] MEDS: ACETAMINOPHEN TAB 325 MG TAB PO PRN (23:13)
--- NOTE | 2020-01-15 02:51 | P.CONS ---
History of Present Illness - Reason for Consult Consult date: 01/14/20 medical clearance Requesting physician: Zac Shaw - Chief Complaint right hand pain - History of Present Illness 84 year old female with hypertension , DM , hypothyroid patient comes in complaining of severe pain in her right hand and elbow, which started after she had caught a moving door with her outstretched hand to avoid impact, since then she noticed some discomfort, however did not think much of it. but later after finishing her shopping and getting into the car, she noticed swelling over the dorsum of her right hand and as she was trying to manipulate the seat belt, she felt sharp pain over her right elbow. for which she asked her husbnand to take her to the hospital. she denies any falling , or head injury , denies any LOC, denies any cuts or bleeding here she was found to have fractures in both distal radial and proximal ulnar bones of the right UE. she reports pain with moving her fingers but no numbness or tingling , she had some limited range of motion due to pain in her right UE medicine consulted for medical management and pre op clearance , patient denies any recent CHF, arrhythmia , HI, syncope or seizures, she claims to be functional at 4 METs with no limitations, able to climb a flight of stairs with no dyspnea, and does her house chores with no limitations. she is used to walking daily. she claims to be in very good health overall. xrays of right UE, confirmed fractures. EKG showed 1st degree AV block , no arrhythmias, no ST changes. patient has history of ventricular tachycardia , s/p defibrillator back in Mar of this year. again she denies any arrhythmias in the recent month or two Review of Systems Pertinent positives as noted in HPI. All other systems were reviewed and are negative Past Medical History Past Medical History: CVA/TIA, Diabetes Mellitus, Myocardial Infarction ([place]), Pulmonary Embolus ([place]), Thyroid Disorder Additional Past Medical History / Comment(s): ventricular tachycardia, TIA 2013 History of Any Multi-Drug Resistant Organisms: None Reported Past Surgical History: AICD, Cardiac Ablation, Cholecystectomy, Coronary Bypass/CABG, Hysterectomy Additional Past Surgical History / Comment(s): cervical fusion, quad. bypass Past Anesthesia/Blood Transfusion Reactions: No Reported Reaction Type of Cardiac Device: AICD Device Placement Date:: 2008 Past Psychological History: No Psychological Hx Reported Past Alcohol Use History: Rare Past Drug Use History: None Reported - Past Family History Mother Family Medical History: Dementia Father Family Medical History: Myocardial Infarction ([place]) Medications and Allergies Home Medications Medication Instructions Recorded Confirmed Type Aspirin 81 mg PO DAILY 08/27/13 01/14/20 History Carvedilol [Coreg] 12.5 mg PO BID-W/MEALS 08/27/13 01/14/20 History Quinapril HCl [Accupril] 10 mg PO DAILY 08/27/13 01/14/20 History glipiZIDE [Glucotrol] 5 mg PO BID-W/MEALS 08/27/13 01/14/20 History Spironolactone [Aldactone] 12.5 mg PO DAILY 09/20/13 01/14/20 History Simvastatin [Zocor] 40 mg PO DAILY 05/31/15 01/14/20 History Clopidogrel Bisulfate [Plavix] 75 mg PO DAILY #30 tab 06/02/15 01/14/20 Rx Levothyroxine Sodium [Synthroid] 88 mcg PO DAILY 09/20/17 01/14/20 History Multivitamins, Thera [Multivitamin 1 tab PO DAILY 11/09/17 01/14/20 History (formulary)] Sotalol HCl [Betapace] 80 mg PO BID-W/MEALS 01/14/20 01/14/20 History metFORMIN HCL [Glucophage] 500 mg PO BID-W/MEALS 01/14/20 01/14/20 History Allergies Allergy/AdvReac Type Severity Reaction Status Date / Time No Known Allergies Allergy Verified 01/14/20 16:34 Physical Exam Vitals: Vital Signs Temp Pulse Resp BP Pulse Ox 01/14/20 14:45 98.7 F 61 18 148/81 97 Intake and Output 01/14/20 01/14/20 01/14/20 06:59 14:59 22:59 Other: Weight 85.729 kg Constitutional: No acute distress, conversant, pleasant Eyes: Anicteric sclerae, moist conjunctiva, Pupils equal round reactive to light ENMT: NC/AT Oropharynx clear, no erythema, or exudates Neck: Supple, FROM, no masses, or JVD No carotid bruits No thyromegaly Lungs: Clear to auscultation Clear to percussion Normal respiratory effort, no accessory muscle use Cardiovascular: Heart regular in rate and rhythm, No murmurs, gallops, or rubs No peripheral edema Abdominal: Soft Nontender, no guarding, rebound or rigidity Abdomen moving with respiration Normoactive bowel sounds No hepatomegaly, No splenomegaly No palpable mass No abdominal wall hernia noted Skin: Normal temperature, tone, texture, turgor No induration No subcutaneous nodules No rash, lesions No ulcers Extremities: Right upper extremity in\and alberto l wrapping, patient able to move fingers with some pain, swelling and ecchymosis over the dorsum of the right hand, capillary refill is immediate No digital cyanosis No clubbing Pedal pulses intact and symmetrical Radial pulses intact and symmetrical No calf tenderness Psychiatric: Alert and oriented to person, place and time Appropriate affect fair judgement Neuro Muscles Strength 4/5 in bilateral lower and left upper extremity , right upper extremity limited due to pain and back slap Sensation to light touch grossly present throughout Cranial nerves II-XII grossly intact No focal sensory deficits Lymphatics: no palpable cervical or supraclavicular , or inguinal lymph nodes Results CBC & Chem 7: 01/14/20 18:01 01/14/20 18:01 Labs: Abnormal Lab Results - Last 24 Hours (Table) 01/14/20 01/14/20 Range/Units 18:01 18:01 Neutrophils # 8.5 H (1.3-7.7) k/uL Sodium 135 L (137-145) mmol/L BUN 21 H (7-17) mg/dL Glucose 261 H (74-99) mg/dL Assessment and Plan Assessment: right upper extremity distal radial and proximal ulnar fracture, 2/2 to injury with heavy moving object (door) caught with outstretched hand plans for surgical intervention pain control per surgery NPO after midnight chronic conditions history of Ventricular tachycardia s/p defibrillator continue home meds coreg and sotalol DM , insulin sliding scale hypothyroid , resume levothyroxine hold aspirin and plavix, resume post surgery request cardiology clearance, patient with ischemic cardiomyopathy and coronary artery disease, with ventricular tachycardia and fibrillation post ICD defibrillator back in March DVT PPX heparin sc tid Thank you for allowing us to participate in the care of this patient. Do not hesitate to contact us with questions. Someone can be reached from the [facility] hospitalist group at all hours of the day at [phone].
[2020-01-15] MEDS: carvediloL 12.5 MG TAB PO SCH ×3 (03:01→18:11)
[2020-01-15] MEDS: SODIUM CHLORIDE 0.9% 1,000 ML IV SCH ×2 (06:20→19:52)
[2020-01-15] MEDS: LEVOTHYROXINE 88 MCG TAB PO SCH (06:20)
[2020-01-15] MEDS: SOTALOL 80 MG TAB PO SCH ×2 (07:01→18:10)
[2020-01-15] MEDS: ATORVASTATIN 20 MG TAB PO SCH (07:01)
[2020-01-15] MEDS: INSULIN ASPART (NovoLOG) 100 UNIT/ML VIAL SQ SCH ×4 (07:01→21:24)
[2020-01-15 07:02] LABS: Glucose,Whole Blood 188 mg/dL (75-99)
[2020-01-15] MEDS ORDERED: QUINAPRIL HCL 10 MG PO SCH (09:00)
--- NOTE | 2020-01-15 10:09 | P.CRDCN ---
History of Present Illness Consult date: 01/15/20 History of present illness: CHIEF COMPLAINT: Cardiac clearance HISTORY OF PRESENT ILLNESS: This is a 84-year old female with a past medical history significant for hyperlipidemia, diabetes mellitus, coronary artery disease with previous CABG, ventricular tachycardia with AICD, and TIA. Patient follows in the office with Dr. Johnson. We have been asked to see the patient in consultation for cardiac clearance. Patient states she was with her yesterday shopping. She was about to walk through the entrance of a store when summary was going the wrong way through the door. Patient states she put up her right hand to block the door from hitting her whole body. She reports she felt fine afterwards and continued shopping with her but when she attempted to get into the car she began having a lot of discomfort of the right arm and then noticed some increased swelling of her hand. Patient was found to have a proximal ulnar fracture and distal metaphyseal radial fracture. She is scheduled for surgical intervention tomorrow. The patient states she is fairly active at home. She denies any chest pain or pressure. She denies shortness of breath. She denies dizziness or lightheadedness. Denies any swelling of the lower extremities. DIAGNOSTICS: EKG reveals sinus mechanism with first-degree AV block. No acute ischemic changes Chest xray negative for acute process Laboratory data: WBC 10.3. Hemoglobin 12.8. Current home cardiac medications include sotalol 80 mg twice a day, Coreg 12.5 mg twice a day, Aldactone 12.5 mg daily, Zocor 40 g daily, quinapril 10 mg daily, aspirin 81 mg daily, and Plavix 75 mg daily REVIEW OF SYSTEMS: At the time of my exam: CONSTITUTIONAL: Denies fever or chills. HEENT: Denies blurred vision, vision changes, or eye pain. Denies hemoptysis CARDIOVASCULAR: Denies chest pain, orthopnea, PND or palpitations RESPIRATORY: No shortness of breath. GASTROINTESTINAL: Denies abdominal pain. Denies nausea or vomiting. HEMATOLOGIC: Denies bleeding disorders. GENITOURINARY: Denies any blood in urine. SKIN: Denies pruitis. Denies rash. PHYSICAL EXAM: VITAL SIGNS: Reviewed. GENERAL: Well-developed in no acute distress. HEENT: Head is normocephalic. Pupils are equal, round. Sclerae anicteric. Mucous membranes of the mouth are moist. Neck supple. No JVD or thyromegaly LUNGS: Respirations even and unlabored. Lungs essentially clear to auscultation bilaterally. HEART: Regular rate and rhythm. S1 and S2 heard. Systolic murmur noted. ABDOMEN: Soft. Nondistended. Nontender. EXTREMITIES: Right arm in splint. Right hand with edema noted. No clubbing or cyanosis. Peripheral pulses intact. No lower extremity edema NEUROLOGIC: Awake and alert. Oriented x 3. ASSESSMENT: Right proximal ulnar fracture Right distal metaphyseal radial fracture Coronary artery disease with history of CABG 2014 History of ischemic cardiomyopathy, echocardiogram from 2016 reveals EF 35-40% History of ventricular tachycardia with AICD placement Hyperlipidemia Diabetes mellitus History of PE History of TIA per chart, patient denies PLAN: Resume home cardiac medications Resume aspirin. Plavix does not need to be resumed. Obtain 2-D echo to assess cardiac structure and function Patient is at moderate risk to undergo surgical intervention due to her advanced age and cardiac history. However there are no absolute contraindications to undergo surgical intervention Recommend optimal blood pressure control Recommend cautious fluid administration perioperatively Further recommendations pending patient's course Nurse practitioner note has been reviewed by physician. Signing provider agrees with the documented findings, assessment, and plan of care. Past Medical History Past Medical History: CVA/TIA, Diabetes Mellitus, Myocardial Infarction ([place]), Pulmonary Embolus ([place]), Thyroid Disorder Additional Past Medical History / Comment(s): ventricular tachycardia, TIA 2013 Last Myocardial Infarction Date:: 2004 History of Any Multi-Drug Resistant Organisms: None Reported Past Surgical History: AICD, Cardiac Ablation, Cholecystectomy, Coronary Bypass/CABG, Hysterectomy Additional Past Surgical History / Comment(s): cervical fusion, quad. bypass Past Anesthesia/Blood Transfusion Reactions: No Reported Reaction Type of Cardiac Device: AICD Device Placement Date:: 2008 Past Psychological History: No Psychological Hx Reported Past Alcohol Use History: Rare Past Drug Use History: None Reported - Past Family History Mother Family Medical History: Dementia Father Family Medical History: Myocardial Infarction ([place]) Medications and Allergies Home Medications Medication Instructions Recorded Confirmed Type Aspirin 81 mg PO DAILY 08/27/13 01/14/20 History Carvedilol [Coreg] 12.5 mg PO BID-W/MEALS 08/27/13 01/14/20 History Quinapril HCl [Accupril] 10 mg PO DAILY 08/27/13 01/14/20 History glipiZIDE [Glucotrol] 5 mg PO BID-W/MEALS 08/27/13 01/14/20 History Spironolactone [Aldactone] 12.5 mg PO DAILY 09/20/13 01/14/20 History Simvastatin [Zocor] 40 mg PO DAILY 05/31/15 01/14/20 History Clopidogrel Bisulfate [Plavix] 75 mg PO DAILY #30 tab 06/02/15 01/14/20 Rx Levothyroxine Sodium [Synthroid] 88 mcg PO DAILY 09/20/17 01/14/20 History Multivitamins, Thera [Multivitamin 1 tab PO DAILY 11/09/17 01/14/20 History (formulary)] Sotalol HCl [Betapace] 80 mg PO BID-W/MEALS 01/14/20 01/14/20 History metFORMIN HCL [Glucophage] 500 mg PO BID-W/MEALS 01/14/20 01/14/20 History Allergies Allergy/AdvReac Type Severity Reaction Status Date / Time No Known Allergies Allergy Verified 01/14/20 16:34 Physical Exam Vitals: Vital Signs Temp Pulse Pulse Resp BP BP Pulse Ox 01/15/20 05:00 97.9 F 70 17 113/66 96 01/14/20 21:03 98.0 F 69 16 115/69 95 01/14/20 20:02 66 18 144/68 98 01/14/20 14:45 98.7 F 61 18 148/81 97 Intake and Output 01/14/20 01/15/20 01/15/20 22:59 06:59 14:59 Intake Total 160 Balance 160 Intake: Intake, IV Titration 160 Amount Sodium Chloride 0.9% 1, 160 000 ml @ 75 mls/hr IV . [id number] [facility] Rx#:[id number] Other: # Voids 2 Weight 85.729 kg Results 01/14/20 18:01 01/14/20 18:01 Cardiac Enzymes 01/14/20 Range/Units 18: AST 25 (14-36) U/L CBC 01/14/20 Range/Units 18:01 WBC 10.3 (3.8-10.6) k/uL RBC 4.36 (3.80-5.40) m/uL Hgb 12.8 (11.4-16.0) gm/dL Hct 40.8 (34.0-46.0) % Plt Count 187 (150-450) k/uL Comprehensive Metabolic Panel 01/14/20 Range/Units 18:01 Sodium 135 L (137-145) mmol/L Potassium 4.2 (3.5-5.1) mmol/L Chloride 104 (98-107) mmol/L Carbon Dioxide 25 (22-30) mmol/L BUN 21 H (7-17) mg/dL Creatinine 0.82 (0.52-1.04) mg/dL Glucose 261 H (74-99) mg/dL Calcium 9.4 (8.4-10.2) mg/dL AST 25 (14-36) U/L ALT 17 (4-34) U/L Alkaline Phosphatase 65 (38-126) U/L Total Protein 6.5 (6.3-8.2) g/dL Albumin 4.0 (3.5-5.0) g/dL Current Medications Generic Name Dose Route Start Last Admin Trade Name Freq PRN Reason Stop Dose Admin Acetaminophen 650 mg 01/14/20 17:17 01/14/20 23:13 Acetaminophen Tab 325 Mg Tab PO 650 mg Q6H PRN Administration Pain Atorvastatin Calcium 20 mg 01/15/20 09:00 01/15/20 07:01 Atorvastatin 20 Mg Tab PO 20 mg DAILY TIFFANIE Administration Carvedilol 12.5 mg 01/15/20 01:30 01/15/20 07:01 Carvedilol 12.5 Mg Tab PO 12.5 mg BID-W/MEALS TIFFANIE Administration Sodium Chloride 1,000 mls @ 75 mls/hr 01/14/20 17:15 01/15/20 06:20 Saline 0.9% IV 75 mls/hr .[id number] TIFFANIE Administration Insulin Aspart 0 unit 01/15/20 07:30 01/15/20 07:01 Insulin Aspart (Novolog) 100 Unit/Ml Vial SQ Not Given ACHS [facility] Protocol Levothyroxine Sodium 88 mcg 01/15/20 06:30 01/15/20 06:20 Levothyroxine 88 Mcg Tab PO 88 mcg DAILY@0630 TIFFANIE Administration Lisinopril 10 mg 01/16/20 09:00 Lisinopril 5 Mg Tab PO DAILY [facility] Morphine Sulfate 2 mg 01/14/20 17:14 Morphine Sulfate 2 Mg/Ml Syringe IV Q4HR PRN Severe Pain Naloxone HCl 0.2 mg 01/14/20 17:14 Naloxone 0.4 Mg/Ml 1 Ml Vial IV Q2M PRN Opioid Reversal Ondansetron HCl 4 mg 01/14/20 17:14 Ondansetron 4 Mg/2 Ml Vial IVP Q8HR PRN Nausea And Vomiting Sotalol HCl 80 mg 01/15/20 07:30 01/15/20 07:01 Sotalol 80 Mg Tab PO 80 mg BID-W/MEALS [facility] Administration Intake and Output 01/14/20 01/15/20 01/15/20 22:59 06:59 14:59 Intake Total 160 Balance 160 Intake: Intake, IV Titration 160 Amount Sodium Chloride 0.9% 1, 160 000 ml @ 75 mls/hr IV . [id number] [facility] Rx#:[id number] Other: # Voids 2 Weight 85.729 kg 01/14/20 18:01 01/14/20 18:01
[2020-01-15] MEDS: ACETAMINOPHEN TAB 325 MG TAB PO PRN (10:15)
--- NOTE | 2020-01-15 11:09 | P.HPOR ---
History of Present Illness H&P Date: 01/15/20 Chief Complaint: Right distal radius fracture, right olecranon fracture Patient is an 84-year-old right-hand dominant female who was brought to [facility] yesterday afternoon after sustaining an injury to her right upper extremity. Patient was shopping her , she was going through a door when someone came out the opposite way in the door swung into her, she braced herself with her right upper extremity. She didn't think much of it at the time of the injury, later in that shopping day she had severe pain involving the right upper extremity, her did bring her to the hospital. Upon arrival to the hospital, multiple lab tests imaging test were done. Images demonstrated a displaced and comminuted right distal radius fracture and right olecranon fracture. I was contacted by the emergency room staff regarding the patient. I was able to review the case and images my attending Dr. Shaw. Patient was admitted under our care with plan for surgical intervention. Patient was evaluated at bedside today, she is resting comfortably. She notices discomfort with movement of the right upper extremity. She has no shoulder pain on the right side. She has no left upper extremity pain. She denies any lower extremity pain. She denies any previous surgical right upper extremity. Currently she denies any headaches, lightheadedness, chest pain, shortness of breath, stomach discomfort, nausea vomiting, fever or chills. Review of Systems Constitutional: Reports as per HPI Past Medical History Past Medical History: CVA/TIA, Diabetes Mellitus, Myocardial Infarction (SD), Pulmonary Embolus (PE), Thyroid Disorder Additional Past Medical History / Comment(s): ventricular tachycardia, TIA 2013 Last Myocardial Infarction Date:: 2004 History of Any Multi-Drug Resistant Organisms: None Reported Past Surgical History: AICD, Cardiac Ablation, Cholecystectomy, Coronary Bypass/CABG, Hysterectomy Additional Past Surgical History / Comment(s): cervical fusion, quad. bypass Past Anesthesia/Blood Transfusion Reactions: No Reported Reaction Type of Cardiac Device: AICD Device Placement Date:: 2008 Past Psychological History: No Psychological Hx Reported Past Alcohol Use History: Rare Past Drug Use History: None Reported - Past Family History Mother Family Medical History: Dementia Father Family Medical History: Myocardial Infarction (SD) Medications and Allergies Home Medications Medication Instructions Recorded Confirmed Type Aspirin 81 mg PO DAILY 08/27/13 01/14/20 History Carvedilol [Coreg] 12.5 mg PO BID-W/MEALS 08/27/13 01/14/20 History Quinapril HCl [Accupril] 10 mg PO DAILY 08/27/13 01/14/20 History glipiZIDE [Glucotrol] 5 mg PO BID-W/MEALS 08/27/13 01/14/20 History Spironolactone [Aldactone] 12.5 mg PO DAILY 09/20/13 01/14/20 History Simvastatin [Zocor] 40 mg PO DAILY 05/31/15 01/14/20 History Clopidogrel Bisulfate [Plavix] 75 mg PO DAILY #30 tab 06/02/15 01/14/20 Rx Levothyroxine Sodium [Synthroid] 88 mcg PO DAILY 09/20/17 01/14/20 History Multivitamins, Thera [Multivitamin 1 tab PO DAILY 11/09/17 01/14/20 History (formulary)] Sotalol HCl [Betapace] 80 mg PO BID-W/MEALS 01/14/20 01/14/20 History metFORMIN HCL [Glucophage] 500 mg PO BID-W/MEALS 01/14/20 01/14/20 History Allergies Allergy/AdvReac Type Severity Reaction Status Date / Time No Known Allergies Allergy Verified 01/14/20 16:34 Physical Examination Right upper extremity: Sugar tong type splint is utilized throughout the right upper extremity with Edward bandage fixation. The splint is in good position and condition. There is notable bruising and soft tissue swelling on the dorsum of the hand and into the fingers. Her sensation to light touch both proximal and distal to the splint are intact. Range of motion and strength are not assessed of the wrist, or elbow. She is able to abduct the shoulder with no difficulty. Cap refill is less than 2 seconds. Results - Labs Labs: Abnormal Lab Results - Last 24 Hours (Table) 01/14/20 01/14/20 01/15/20 Range/Units 18:01 18:01 07:00 Neutrophils # 8.5 H (1.3-7.7) k/uL Sodium 135 L (137-145) mmol/L BUN 21 H (7-17) mg/dL Glucose 261 H (74-99) mg/dL POC Glucose (mg/dL) 188 H (75-99) mg/dL H & H 01/14/20 Range/Units 18:01 Hgb 12.8 (11.4-16.0) gm/dL Hct 40.8 (34.0-46.0) % Result Diagrams: 01/14/20 18:01 01/14/20 18:01 Assessment and Plan Assessment: Displaced comminuted right distal radius fracture Displaced and comminuted right olecranon fracture Other medical comorbidities Plan: Imaging: X-rays were reviewed, was able to demonstrate the obvious comminuted and displaced right distal radius fracture. X-rays also demonstrated a displaced and comminuted right olecranon fracture. No other acute osseous abnormalities appreciated Plan: I was able to discuss the case including both physical exam findings and imaging studies my attending Dr. Shaw. Patient was admitted to the hospital on 01/14/2020 with plan for surgical intervention. I was able to discuss the surgical treatment with the patient at bedside. Risks and benefits of procedure were discussed, this including but not excluded blood loss, neurovascular injury, pain and stiffness, inadequate healing of bone, need for further surgery. Patient is in good understanding and would like to proceed. Plan is to proceed with surgery on 01/16/2020, more specifically an open reduction internal fixation of the right distal radius and right olecranon Obtain consent Nothing by mouth after midnight Pain control Elevate the right upper extremity 24 7 along with ice Other medical microbiologist recommendations and clearances Pending pain control after surgery, possible discharge home on 01/16/2020 Time with Patient: Less than 30
--- NOTE | 2020-01-15 11:14 | ECHOF ---
Referral Reason:LV function MEASUREMENTS -------- HEIGHT: 172.7 cm WEIGHT: 85.7 kg BP: RVIDd: 2.8 cm (< 3.3) IVSd: 1.3 cm (0.6 - 1.1) LVIDd: 4.7 cm (3.9 - 5.3) LVPWd: 1.1 cm (0.6 - 1.1) IVSs: 1.6 cm LVIDs: 3.5 cm LVPWs: 1.6 cm LAESV Index (A-L): 27.09 ml/m Ao Diam: 2.9 cm (2.0 - 3.7) AV Cusp: 2.2 cm (1.5 - 2.6) LA Diam: 3.9 cm (2.7 - 3.8) MV EXCURSION: 10.667 mm (> 18.000) MV EF SLOPE: 41 mm/s (70 - 150) EPSS: 0.7 cm MV E Marty: 0.55 m/s MV DecT: 220 ms MV A Marty: 0.64 m/s MV E/A Ratio: 0.86 AR PHT: 1065 ms RAP: 5.00 mmHg RVSP: 39.12 mmHg FINDINGS -------- Sinus rhythm. Pacerwire seen in RV and RA. This was a technically good study. The left ventricular size is normal. Left ventricular wall thickness is normal. Overall left vent ricular systolic function is mild-moderately impaired with, an EF between 40 - 45 %. Basal lateral LV wall motion is hypokinetic. Basal inferior LV wall motion is hypokinetic. Basal inferoseptal LV wall motion is hypokinetic. Mid lateral LV wall motion is hypokinetic. Mid inferior LV wall motion is hypokinetic. The right ventricle is normal in size. Normal LA size by volume 22+/-6 ml/m2. The right atrial size is normal. Aortic valve is trileaflet and is mildly thickened. There is mild aortic regurgitation. The mitral valve leaflets are mildly thickened. Moderate mitral regurgitation is present. The tricuspid valve appears structurally normal. Mild tricuspid regurgitation present. There is m ild pulmonary hypertension. The right ventricular systolic pressure, as measured by Doppler, is 39. 12mmHg. Trace/mild (physiologic) pulmonic regurgitation. The aortic root size is normal. Normal inferior vena cava with normal inspiratory collapse consistent with estimated right atrial pre ssure of 5 mmHg. There is a trivial pericardial effusion present. CONCLUSIONS -------- 1. Overall left ventricular systolic function is mild-moderately impaired with, an EF between 40 - 45 %. 2. Basal lateral LV wall motion is hypokinetic. 3. Basal inferior LV wall motion is hypokinetic. 4. Basal inferoseptal LV wall motion is hypokinetic. 5. Mid lateral LV wall motion is hypokinetic. 6. Mid inferior LV wall motion is hypokinetic. 7. Normal LA size by volume 22+/-6 ml/m2. 8. Aortic valve is trileaflet and is mildly thickened. 9. There is mild aortic regurgitation. 10. The mitral valve leaflets are mildly thickened. 11. Moderate mitral regurgitation is present. 12. Mild tricuspid regurgitation present. 13. There is mild pulmonary hypertension. 14. Trace/mild (physiologic) pulmonic regurgitation. 15. There is a trivial pericardial effusion present. SCHEME TECHNICIAN: Maria Ines Childs RDCS
[2020-01-15 11:46] LABS: Glucose,Whole Blood 255 mg/dL (75-99)
[2020-01-15] MEDS ORDERED: HYDROcodone/APAP 5-325MG 1 EACH TAB PO PRN (12:28)
--- NOTE | 2020-01-15 15:25 | P.PN ---
Subjective Progress Note Date: 01/15/20 (delayed chrating seen at 1130) Principal diagnosis: arm pain Patient is an 84-year-old female history of diabetes, hypothyroidism, and hypertension who presented after getting her hand caught in a moving door. In the ER she was found to have a right radial and olecranon fracture. She was admitted for operative management. We were consulted for diabetic management. Patient seen and examined at bedside. Pain is currently well controlled. No nausea, vomiting, or diarrhea. She states that her last hemoglobin A1c was in February 2019 and was 7.8. She is following her blood sugars may have been doing well her morning blood sugars between 100-116. General: non toxic, no distress, appears at stated age Derm: warm, dry, Edward wrap and sling in place over right arm Head: atraumatic, normocephalic, symmetric Eyes: EOMI, no lid lag, anicteric sclera Mouth: no lip lesion, mucus membranes moist Cardiovascular: S1S2 reg, no murmur, positive posterior tibial pulse bilateral, Lungs: CTA bilateral, no rhonchi, no rales , no accessory muscle use Abdominal: soft, nontender to palpation, no guarding, no appreciable organomegaly Ext: no gross muscle atrophy, edema and bruising of right hand, no contractures Neuro: CN II-XI grossly intact, no focal neuro deficits Psych: Alert, oriented, appropriate affect DM 2 well controlled -Hold orals -Sliding-scale insulin -Check hemoglobin A1c -Outpatient follow-up with Dr. Villanueva Displaced comminuted right distal radial fracture, displaced and comminuted right olecranon fracture -Management per Ortho -Patient did not want anything a strong his morphine the Tylenol was not helping the pain, Rawlings added Ischemic cardiomyopathy with EF 35-40%, no exacerbation, CAD s/p CABG - continue Coreg, Aldactone, ACEI - Plavix on hold - on ASA History of pulmonary embolism -Not on chronic anticoagulation Ventricular tachycardia status post AICD -Cardiac clearance has been obtained -Continue with sotalol Thank you for allowing us to participate in the care of this pleasant patient. Do not hesitate to contact us with questions. Someone can be reached from the [facility] hospitalist group all hours of the day at [phone] or via perfect serve. Objective - Vital Signs Vital signs: Vital Signs Temp 97.6 F 01/15/20 14:00 Pulse 62 01/15/20 14:00 Resp 16 01/15/20 14:00 BP 130/75 01/15/20 14:00 Pulse Ox 95 01/15/20 14:00 Intake & Output 01/14/20 01/15/20 01/15/20 18:59 06:59 18:59 Intake Total 160 Balance 160 Weight 85.729 kg 85.729 kg Intake: Intake, IV Titration 160 Amount Sodium Chloride 0.9% 1, 160 000 ml @ 75 mls/hr IV . [id number] [facility] Rx#:[id number] Other: # Voids 2 - Labs CBC & Chem 7: 01/14/20 18:01 01/14/20 18:01 Labs: Abnormal Lab Results - Last 24 Hours (Table) 01/14/20 01/14/20 01/15/20 Range/Units 18:01 18:01 07:00 Neutrophils # 8.5 H (1.3-7.7) k/uL Sodium 135 L (137-145) mmol/L BUN 21 H (7-17) mg/dL Glucose 261 H (74-99) mg/dL POC Glucose (mg/dL) 188 H (75-99) mg/dL 01/15/20 Range/Units 11:44 Neutrophils # (1.3-7.7) k/uL Sodium (137-145) mmol/L BUN (7-17) mg/dL Glucose (74-99) mg/dL POC Glucose (mg/dL) 255 H (75-99) mg/dL
[2020-01-15 16:44] LABS: Glucose,Whole Blood 253 mg/dL (75-99)
[2020-01-15 19:58] LABS: Glucose,Whole Blood 213 mg/dL (75-99)
[2020-01-16] MEDS: LEVOTHYROXINE 88 MCG TAB PO SCH (06:27)
[2020-01-16] MEDS ORDERED: LACTATED RINGERS 1,000 ML IV ONE (07:00)
[2020-01-16] MEDS ORDERED: MIDAZOLAM 2 MG/2 ML VIAL IV ONE (07:05)
[2020-01-16 07:08] LABS: Glucose,Whole Blood 192 mg/dL (75-99)
[2020-01-16] MEDS ORDERED: ONDANSETRON 4 MG/2 ML VIAL IVP ONE (07:25)
[2020-01-16] MEDS ORDERED: LIDOCAINE 1% INJ 10MG/ML (20 ML MDV) ONE (07:25)
[2020-01-16] MEDS ORDERED: DEXAMETHASONE SOD PHOSPHATE 4 MG/ML 1 ML VIAL ONE (07:25)
[2020-01-16] MEDS ORDERED: ePHEDrine SULFATE/0.9% NACL/PF 50 MG/5 ML SYRINGE IV ONE (07:25)
[2020-01-16] MEDS ORDERED: ROPIVACAINE 5 MG/ML 30 ML VIAL ONE (07:25)
[2020-01-16] MEDS ORDERED: SUCCINYLCHOLINE CHLORIDE 100 MG/5 ML SYR IV ONE (07:25)
[2020-01-16] MEDS ORDERED: WATER FOR INJECTION, STERILE 10 ML VIAL IV ONE (07:25)
[2020-01-16] MEDS ORDERED: fentaNYL (PF) 50 MCG/ML 2 ML AMP ONE (07:25)
[2020-01-16] MEDS ORDERED: PROPOFOL 10 MG/ML 20 ML VIAL IV ONE (07:25)
[2020-01-16] MEDS ORDERED: DEXAMETHASONE SOD PHOSPHATE 4 MG/ML 1 ML VIAL IV ONE (07:26)
[2020-01-16] MEDS ORDERED: ceFAZolin 1,000 MG VIAL IVPB ONE (07:30)
[2020-01-16] MEDS ORDERED: ceFAZolin 1,000 MG in SODIUM CHLORIDE 0.9% 1,000 ML IRRIGATION ONE (08:05)
[2020-01-16] MEDS ORDERED: HYDROcodone/APAP 5-325MG 1 EACH TAB PO PRN (09:16)
[2020-01-16] MEDS ORDERED: ONDANSETRON 4 MG/2 ML VIAL IVP PRN (09:16)
[2020-01-16] MEDS ORDERED: HYDROmorphone 0.5 MG/0.5 ML SYRINGE IVP PRN ×2 (09:16)
[2020-01-16] MEDS ORDERED: HYDROmorphone 0.2 MG/1 ML SYRINGE IVP PRN (09:16)
--- NOTE | 2020-01-16 09:16 | P.OP ---
Date of Procedure: 01/16/20 Preoperative Diagnosis: 1. Displaced/comminuted right olecranon fracture 2. Displaced/comminuted right distal radius fracture Postoperative Diagnosis: Same Procedure(s) Performed: 1. Open reduction internal fixation right olecranon fracture 2. Open reduction internal fixation right distal radius fracture Implants: 1. 2-0.62 K wires with a Arthrex cerclage wire 2. Arthrex distal volar wrist plate with appropriate length peg/screws Anesthesia: GETA, regional (Interscalene block) Surgeon: Zac hSaw Demolition Worker #1: Ashok Rivas Estimated Blood Loss (ml): 25 Pathology: none sent Condition: stable Disposition: PACU Indications for Procedure: 84-year-old patient seen with displaced right elbow olecranon fracture along with a displaced right distal radius fracture. I recommended open reduction internal fixation of both fractures. Both the procedures as well as the risks, complications and recovery were discussed area patient was agreeable. Consent was obtained. Preoperative clearance was obtained. Operative Findings: see description of procedure Description of Procedure: The patient was taken to the operative suite after receiving an interscalene block by the department of anesthesia for postoperative pain management. She received preoperative IV antibiotics. She underwent a general anesthetic by the department of anesthesia. A well-padded tourniquet placed proximal right upper extremity. The right upper extremity was prepped and draped in the normal sterile orthopedic fashion. The extremity was elevated and the tourniquet was insufflated to 200. I made an incision along the area of the proximal olecranon sharply through skin. We carefully dissected down to the fracture site. The fracture hematoma was evacuated. There was a comminuted intra-articular fracture involving the olecranon. I now with the assistance of Oli AMAYA reduced the fracture and inserted 20 0.62 K wires distally across the fracture site and into the intramedullary canal. A C-arm was brought in confirming adequate positioning of both K wires. I now made a drill hole in the proximal one third area of the ulnar/F. I now passed an Arthrex cerclage wire through that hole. I now crisscrossed the wire and a standard tension band technique fashion. The K wires were cut and bent and buried into the bone. I now tension the Arthrex cerclage wire with the tensioner reducing the fracture with good fixation noted. The suture limbs were clipped. We had excellent fixation of the fracture with range of motion and was good stability. The C-arm was brought in confirming adequate alignment of the hardware and good reduction of the fracture. Spot films were obtained to document that. The wound was irrigated copiously with normal saline. The subcu soft tissues were approximated 2-0 Vicryl. The skin is proximal skin jacklyn. The C-arm was pulled back. Now turned my attention to the distal radius fracture. I now brought in a sterile hand table. I now made an incision along the distal radius sharply through skin. I carefully dissected down to the distal radius. We evacuated the hematoma. There was a comminuted displaced fracture. I reduced the fracture. I chose a appropriate Arthrex distal volar wrist plate and secured it with the sliding hole option. The C-arm was brought in confirming good positioning of the plate in the fracture was fairly well reduced. I now drilled 4 holes distally for insertion of pedicle screws inserted those with good fixation noted. I now placed one more screw proximally with good fixation n oted. We took the wrist range of motion noted stability of both the fracture and the hardware. The C-arm was brought in confirming good reduction of fracture and good position of our hardware. Spot films document that. The wound was irrigated. The subcu soft tissues were repaired with 2-0 Vicryl. The skin was repaired with a running subcutaneous suture and skin glue. Sterile dressings were applied to both incision areas. The tourniquet was released and immediate capillary refill the entire extremity noted. We placed her into a long arm ulnar gutter type splint with the elbow neutral position. She was awakened, transferred to a bed and recovery stable condition. Oli AMAYA assisted procedure.
--- NOTE | 2020-01-16 09:23 | XR ---
EXAMINATION TYPE: XR elbow limited RT, XR wrist limited RT, FL guidance operating room DATE OF EXAM: 01/16/2020 COMPARISON: 01/14/2020 HISTORY: 84-year-old female ORIF right elbow and wrist FINDINGS: Intraoperative fluoroscopy during internal fixation in both the right wrist and right elbow. At the elbow, 2 images are provided for the pinning across the olecranon fracture. At the wrist, 2 images are provided for the volar plate and screw fixation. FLUOROSCOPY Fluoroscopy time of 16 seconds was used during right wrist and right elbow ORIF. A total of 4 image/ s document/s the procedure. IMPRESSION: Intraoperative fluoroscopy as above.
[2020-01-16 09:39] LABS: Glucose,Whole Blood 235 mg/dL (75-99)
[2020-01-16] MEDS ORDERED: INSULIN ASPART (NovoLOG) 100 UNIT/ML VIAL SQ ONE (09:47)
--- NOTE | 2020-01-16 10:11 | P.PN ---
Progress Note - Text Progress Note Date: 01/16/20 Patient off the floor for surgery during rounds. Will re-evaluate patient tomorrow.
[2020-01-16] MEDS ORDERED: SODIUM CHLORIDE 0.9% 1,000 ML IV ONE (10:16)
[2020-01-16] MEDS: INSULIN ASPART (NovoLOG) 100 UNIT/ML VIAL SQ SCH ×4 (11:16→20:59)
[2020-01-16] MEDS: carvediloL 12.5 MG TAB PO SCH ×2 (11:41→18:01)
[2020-01-16] MEDS: ASPIRIN 81 MG PO SCH (11:42)
[2020-01-16] MEDS: lisinopriL 5 MG TAB PO SCH (11:42)
[2020-01-16] MEDS: SPIRONOLACTONE 25 MG TAB PO SCH (11:42)
[2020-01-16] MEDS: ATORVASTATIN 20 MG TAB PO SCH (11:42)
[2020-01-16] MEDS: SOTALOL 80 MG TAB PO SCH ×2 (11:42→18:01)
[2020-01-16 11:59] LABS: Glucose,Whole Blood 190 mg/dL (75-99)
--- NOTE | 2020-01-16 15:36 | P.ANPRN ---
Procedure Note - Anesthesia - Nerve Block Performed Right Supraclavicular Single Time Out Performed: Yes Date of Procedure: 01/16/20 Procedure Start Time: :04 Procedure Stop Time: 07:09 Location of Patient: PreOp Indication: Acute Post-Operative Pain, Requested by Surgeon Sedation Type: Sedate with meaningful contact maintained Preparation: Sterile Prep Position: Supine Needle Types: Pajunk Needle Gauge: 21 Ultrasound used to visualize needle placement: Yes Ultrasound used to observe medication spread: Yes Blood Aspirated: No Pain Paresthesia on Injection Noted: No Resistance on Injection: Normal Image Stored and Saved: Yes Events: Uneventful and Well Tolerated (ropi .5% 20cc plus dexamethasone 4mg)
[2020-01-16 17:01] LABS: Glucose,Whole Blood 253 mg/dL (75-99)
--- NOTE | 2020-01-16 18:34 | P.PN ---
Subjective Progress Note Date: 01/16/20 (deleyad charting seen at 1145) Principal diagnosis: arm pain Patient is an 84-year-old female history of diabetes, hypothyroidism, and hypertension who presented after getting her hand caught in a moving door. In the ER she was found to have a right radial and olecranon fracture. She was admitted for operative management. We were consulted for diabetic management. She underwent repair on 01/15 without an immediate post-op complications. Patient seen and examined at bedside. Arm is aching and feeling stiff, no chest pain, no light headedness, no dizziness. General: non toxic, no distress, appears at stated age Derm: warm, dry, splint in place over right arm Head: atraumatic, normocephalic, symmetric Eyes: EOMI, no lid lag, anicteric sclera Mouth: no lip lesion, mucus membranes moist Cardiovascular: S1S2 reg, no murmur, positive posterior tibial pulse bilateral, Lungs: Decreased bs bilateral, no rhonchi, no rales , no accessory muscle use Abdominal: soft, nontender to palpation, no guarding, no appreciable organomegaly Ext: no gross muscle atrophy, edema and bruising of right hand, no contractures Neuro: CN II-XI grossly intact, no focal neuro deficits Psych: Alert, oriented, appropriate affect DM 2 well controlled -Hold orals -Sliding-scale insulin -Await hemoglobin A1c -Outpatient follow-up with Dr. Villanueva Displaced comminuted right distal radial fracture, displaced and comminuted right olecranon fracture -Management per Ortho s/p ORIF -Pain control Ischemic cardiomyopathy with EF 35-40%, no exacerbation, CAD s/p CABG - continue Coreg, Aldactone, ACEI - Plavix on hold - on ASA History of pulmonary embolism -Not on chronic anticoagulation Ventricular tachycardia status post AICD -Cardiac clearance has been obtained -Continue with sotalol Thank you for allowing us to participate in the care of this pleasant patient. Do not hesitate to contact us with questions. Someone can be reached from the [facility] hospitalist group all hours of the day at [phone] or via perfect serve. Objective - Vital Signs Vital signs: Vital Signs Temp 97.4 F L 01/16/20 13:35 Pulse 66 01/16/20 13:35 Resp 16 01/16/20 13:35 BP 112/55 01/16/20 13:35 Pulse Ox 93 L 01/16/20 13:35 Intake & Output 01/15/20 01/16/20 01/16/20 18:59 06:59 18:59 Intake Total 0 776 Output Total 25 Balance 0 751 Weight 85.729 kg Intake: IV 776 Oral 0 Output: Estimated Blood Loss 25 Other: # Voids 2 2 1 - Labs CBC & Chem 7: 01/14/20 18:01 01/14/20 18:01 Labs: Abnormal Lab Results - Last 24 Hours (Table) 01/15/20 01/16/20 01/16/20 Range/Units 19:57 07:06 09:37 POC Glucose (mg/dL) 213 H 192 H 235 H (75-99) mg/dL 01/16/20 01/16/20 Range/Units 11:57 17:00 POC Glucose (mg/dL) 190 H 253 H (75-99) mg/dL
[2020-01-16] MEDS: HYDROcodone/APAP 5-325MG 1 EACH TAB PO PRN (18:55)
[2020-01-16 20:30] LABS: Glucose,Whole Blood 194 mg/dL (75-99)
[2020-01-16] MEDS: SODIUM CHLORIDE 0.9% 1,000 ML IV SCH (20:51)
[2020-01-16] MEDS: LACTATED RINGERS 1,000 ML IV SCH (20:51)
[2020-01-16] MEDS: ACETAMINOPHEN TAB 325 MG TAB PO PRN (23:49)
[2020-01-17] MEDS: LACTATED RINGERS 1,000 ML IV SCH (04:52)
[2020-01-17] MEDS: LEVOTHYROXINE 88 MCG TAB PO SCH (05:48)
[2020-01-17] MEDS: HYDROcodone/APAP 5-325MG 1 EACH TAB PO PRN (05:49)
[2020-01-17 06:53] LABS: Glucose,Whole Blood 194 mg/dL (75-99)
[2020-01-17] MEDS: carvediloL 12.5 MG TAB PO SCH (08:33)
[2020-01-17] MEDS: INSULIN ASPART (NovoLOG) 100 UNIT/ML VIAL SQ SCH ×2 (08:33→12:55)
[2020-01-17] MEDS: ATORVASTATIN 20 MG TAB PO SCH (08:35)
[2020-01-17] MEDS: SOTALOL 80 MG TAB PO SCH (08:35)
[2020-01-17] MEDS: ASPIRIN 81 MG PO SCH (08:35)
[2020-01-17] MEDS ORDERED: CLOPIDOGREL 75 MG TAB PO SCH (09:00)
[2020-01-17 09:13] LABS: Basophils % (A) 0 %; Eosinophils % (A) 0 %; HCT 29.8 % (34.0-46.0); Lymphocytes # (A) 1.1 k/uL (1.0-4.8); Lymphocytes % (A) 10 %; MCH 30.2 pg (25.0-35.0); MCHC 32.6 g/dL (31.0-37.0); MCV 92.7 fL (80.0-100.0); Mean Platelet Volume 9.8; Monocytes # (A) 0.6 k/uL (0-1.0); Monocytes % (A) 6 %; Neutrophils % (A) 83 %; Platelet Count 133 k/uL (150-450); RBC 3.22 m/uL (3.80-5.40); RDW 12.7 % (11.5-15.5); WBC 10.9 k/uL (3.8-10.6)
[2020-01-17 09:15] LABS: HGB 9.7 gm/dL (11.4-16.0)
[2020-01-17 09:33] LABS: African American GFR (CKD) 67.1 (60.0-200.0); Anion Gap 7.4 mmol/L (4.00-12.00); BUN/Creat Ratio 17.78 Ratio (12.00-20.00); Calcium 8.6 mg/dL (8.7-10.3); Carbon Dioxide 26.6 mmol/L (21.6-31.8); Non-African American GFR(CKD) 57.9 (60.0-200.0); Potassium 3.9 mmol/L (3.5-5.5)
--- NOTE | 2020-01-17 10:27 | P.PN ---
Subjective Progress Note Date: 01/17/20 CHIEF COMPLAINT: Cardiac clearance HISTORY OF PRESENT ILLNESS: Patient is status post open reduction internal fixation of right olecranon fracture and right distal radius fracture with Dr. Shaw. POD #1. Patient examined this morning at the bedside. Patient reports some mild discomfort to her right arm. She denies chest pain or pressure. She denies shortness of breath. Blood pressure 115/46. Heart rate in the 50s and 60s. PHYSICAL EXAM: VITAL SIGNS: Reviewed. GENERAL: Well-developed in no acute distress. HEENT: Head is normocephalic. Pupils are equal, round. Sclerae anicteric. Mucous membranes of the mouth are moist. Neck supple. No JVD or thyromegaly LUNGS: Respirations even and unlabored. Lungs essentially clear to auscultation bilaterally. HEART: Regular rate and rhythm. S1 and S2 heard. Systolic murmur noted. ABDOMEN: Soft. Nondistended. Nontender. EXTREMITIES: Right arm in splint. No clubbing or cyanosis. Peripheral pulses intact. No lower extremity edema NEUROLOGIC: Awake and alert. Oriented x 3. ASSESSMENT: Right proximal ulnar fracture Right distal metaphyseal radial fracture Coronary artery disease with history of CABG 42014 History of ischemic cardiomyopathy, echocardiogram from 2016 reveals EF 35-40% History of ventricular tachycardia with AICD placement Hyperlipidemia Diabetes mellitus History of PE History of TIA per chart, patient denies PLAN: Continue current cardiac medications Patient is stable for discharge from a cardiac perspective She is to follow up outpatient with Dr. Johnson Nurse practitioner note has been reviewed by physician. Signing provider agrees with the documented findings, assessment, and plan of care. Objective - Vital Signs Vital signs: Vital Signs Temp 97.7 F 01/17/20 10:05 Pulse 54 L 01/17/20 10:05 Resp 16 01/17/20 10:05 BP 115/46 01/17/20 10:05 Pulse Ox 93 L 01/17/20 07:30 Intake & Output 01/16/20 01/17/20 01/17/20 18:59 06:59 18:59 Intake Total 1176 50 Output Total 25 Balance 1151 50 Weight 85.729 kg Intake: IV 776 Intake, IV Titration 400 50 Amount Sodium Chloride 0.9% 1, 400 000 ml @ 0 mls/hr IV .[facility] Rx#:[id number] ceFAZolin 2 gm In Sodium 50 Chloride 0.9% 50 ml @ 100 mls/hr IVPB Q8HR [facility] Rx# :[id number] Output: Estimated Blood Loss 25 Other: Voiding Method Toilet # Voids 2 1 - Labs CBC & Chem 7: 01/17/20 06:15 01/17/20 06:15 Labs: Abnormal Lab Results - Last 24 Hours (Table) 01/16/20 01/16/20 01/16/20 Range/Units 11:57 17:00 20:29 WBC (3.8-10.6) k/uL RBC (3.80-5.40) m/uL Hgb (11.4-16.0) gm/dL Hct (34.0-46.0) % Plt Count (150-450) k/uL Neutrophils # (1.3-7.7) k/uL Est GFR (CKD-EPI)NonAf (60.0-200.0) Glucose (70-110) mg/dL POC Glucose (mg/dL) 190 H 253 H 194 H (75-99) mg/dL Calcium (8.7-10.3) mg/dL 01/17/20 01/17/20 01/17/20 Range/Units 06:15 06:15 06:52 WBC 10.9 H (3.8-10.6) k/uL RBC 3.22 L (3.80-5.40) m/uL Hgb 9.7 L D (11.4-16.0) gm/dL Hct 29.8 L (34.0-46.0) % Plt Count 133 L (150-450) k/uL Neutrophils # 9.0 H (1.3-7.7) k/uL Est GFR (CKD-EPI)NonAf 57.9 L (60.0-200.0) Glucose 188 H (70-110) mg/dL POC Glucose (mg/dL) 194 H (75-99) mg/dL Calcium 8.6 L (8.7-10.3) mg/dL
[2020-01-17] MEDS: lisinopriL 5 MG TAB PO SCH (10:28)
[2020-01-17] MEDS: SPIRONOLACTONE 25 MG TAB PO SCH (10:28)
--- NOTE | 2020-01-17 11:04 | P.PN ---
Subjective Progress Note Date: 01/17/20 Principal diagnosis: Status post ORIF right distal radius fracture, right elbow olecranon fracture Patient evaluated bedside today, she is resting comfortably. Her pain is well-c ontrolled. She has occasional discomfort in the right upper extremity. She has no headaches, lightheadedness, chest pain, shortness of breath. Objective - Vital Signs Vital signs: Vital Signs Temp 97.7 F 01/17/20 10:05 Pulse 54 L 01/17/20 10:05 Resp 16 01/17/20 10:05 BP 115/46 01/17/20 10:05 Pulse Ox 93 L 01/17/20 07:30 Intake & Output 01/16/20 01/17/20 01/17/20 18:59 06:59 18:59 Intake Total 1176 50 Output Total 25 Balance 1151 50 Weight 85.729 kg Intake: IV 776 Intake, IV Titration 400 50 Amount Sodium Chloride 0.9% 1, 400 000 ml @ 0 mls/hr IV .STK -[facility] ONE Rx#:[id number] ceFAZolin 2 gm In Sodium 50 Chloride 0.9% 50 ml @ 100 mls/hr IVPB Q8HR [facility] Rx# :[id number] Output: Estimated Blood Loss 25 Other: Voiding Method Toilet # Voids 2 1 - Exam Right upper extremity: Postop splint is in good position and condition with Edward bandage fixation. There is notable swelling and bruising in the fingers. Her sensation to light touch both proximal and distal to the splint are intact. She is able to wiggle all fingers no difficulty. Her cap refill is less than 2 seconds. - Labs CBC & Chem 7: 01/17/20 06:15 01/17/20 06:15 Labs: Abnormal Lab Results - Last 24 Hours (Table) 01/16/20 01/16/20 01/16/20 Range/Units 11:57 17:00 20:29 WBC (3.8-10.6) k/uL RBC (3.80-5.40) m/uL Hgb (11.4-16.0) gm/dL Hct (34.0-46.0) % Plt Count (150-450) k/uL Neutrophils # (1.3-7.7) k/uL Est GFR (CKD-EPI)NonAf (60.0-200.0) Glucose (70-110) mg/dL POC Glucose (mg/dL) 190 H 253 H 194 H (75-99) mg/dL Calcium (8.7-10.3) mg/dL 01/17/20 01/17/20 01/17/20 Range/Units 06:15 06:15 06:52 WBC 10.9 H (3.8-10.6) k/uL RBC 3.22 L (3.80-5.40) m/uL Hgb 9.7 L D (11.4-16.0) gm/dL Hct 29.8 L (34.0-46.0) % Plt Count 133 L (150-450) k/uL Neutrophils # 9.0 H (1.3-7.7) k/uL Est GFR (CKD-EPI)NonAf 57.9 L (60.0-200.0) Glucose 188 H (70-110) mg/dL POC Glucose (mg/dL) 194 H (75-99) mg/dL Calcium 8.6 L (8.7-10.3) mg/dL Assessment and Plan Assessment: Status post ORIF right distal radius fracture and right elbow olecranon fracture Plan: Pain control, plan for discharge home on oral medication DVT prophylaxis, she can resume her normal prescribed aspirin and Plavix at discharge Wound care instructions were discussed with regards to the splint Activity level and restrictions were discussed with regards to the right upper extremity Plan for follow-up in the outpatient setting in 2 weeks Time with Patient: Less than 30
[2020-01-17 11:37] LABS: Glucose,Whole Blood 141 mg/dL (75-99)
[2020-01-17 11:59] VITALS: BP 126/70; PULSE 50; RESP 17; TEMP 97.9
--- NOTE | 2020-01-17 12:25 | P.PN ---
Subjective Progress Note Date: 01/17/20 Principal diagnosis: Olecranon fracture Patient doing very well. No complaints. No significant pain. No sob. Objective - Vital Signs Vital signs: Vital Signs Temp 97.9 F 01/17/20 11:58 Pulse 50 L 01/17/20 11:58 Resp 17 01/17/20 11:58 BP 126/70 01/17/20 11:58 Pulse Ox 95 01/17/20 11:58 Intake & Output 01/16/20 01/17/20 01/17/20 18:59 06:59 18:59 Intake Total 1176 50 Output Total 25 Balance 1151 50 Weight 85.729 kg Intake: IV 776 Intake, IV Titration 400 50 Amount Sodium Chloride 0.9% 1, 400 000 ml @ 0 mls/hr IV .STK -[facility] Rx#:[id number] ceFAZolin 2 gm In Sodium 50 Chloride 0.9% 50 ml @ 100 mls/hr IVPB Q8HR [facility] Rx# :[id number] Output: Estimated Blood Loss 25 Other: Voiding Method Toilet # Voids 2 1 - Exam General: non toxic, no distress, appears at stated age Derm: warm, dry, splint in place over right arm Head: atraumatic, normocephalic, symmetric Eyes: EOMI, no lid lag, anicteric sclera Mouth: no lip lesion, mucus membranes moist Cardiovascular: S1S2 reg, no murmur, positive posterior tibial pulse bilateral, Lungs: Decreased bs bilateral, no rhonchi, no rales , no accessory muscle use Abdominal: soft, nontender to palpation, no guarding, no appreciable organomegaly Ext: no gross muscle atrophy, edema and bruising of right hand, no contractures Neuro: CN II-XI grossly intact, no focal neuro deficits Psych: Alert, oriented, appropriate affect - Labs CBC & Chem 7: 01/17/20 06:15 01/17/20 06:15 Labs: Abnormal Lab Results - Last 24 Hours (Table) 01/16/20 01/16/20 01/17/20 Range/Units 17:00 20:29 06:15 WBC (3.8-10.6) k/uL RBC (3.80-5.40) m/uL Hgb (11.4-16.0) gm/dL Hct (34.0-46.0) % Plt Count (150-450) k/uL Neutrophils # (1.3-7.7) k/uL Est GFR (CKD-EPI)NonAf 57.9 L (60.0-200.0) Glucose 188 H (70-110) mg/dL POC Glucose (mg/dL) 253 H 194 H (75-99) mg/dL Calcium 8.6 L (8.7-10.3) mg/dL 01/17/20 01/17/20 01/17/20 Range/Units 06:15 06:52 11:36 WBC 10.9 H (3.8-10.6) k/uL RBC 3.22 L (3.80-5.40) m/uL Hgb 9.7 L D (11.4-16.0) gm/dL Hct 29.8 L (34.0-46.0) % Plt Count 133 L (150-450) k/uL Neutrophils # 9.0 H (1.3-7.7) k/uL Est GFR (CKD-EPI)NonAf (60.0-200.0) Glucose (70-110) mg/dL POC Glucose (mg/dL) 194 H 141 H (75-99) mg/dL Calcium (8.7-10.3) mg/dL Assessment and Plan Plan: DM 2 well controlled -Hold orals -Sliding-scale insulin -Outpatient follow-up with Dr. Villanueva Displaced comminuted right distal radial fracture, displaced and comminuted right olecranon fracture -Management per Ortho s/p ORIF -Pain control Ischemic cardiomyopathy with EF 35-40%, no exacerbation, CAD s/p CABG - continue Coreg, Aldactone, ACEI - Plavix on hold, please check with cardio if it is needed upon discharge. - on ASA History of pulmonary embolism -Not on chronic anticoagulation Ventricular tachycardia status post AICD -Cardiac clearance has been obtained -Continue with sotalol Thank you for allowing us to participate in the care of this pleasant patient. Do not hesitate to contact us with questions. Someone can be reached from the [facility] [place] hospitalist group all hours of the day at [phone] or via perfect serve.
== END 2020-01-17 14:26 | disposition home or self-care (01) | DRG 510 ==
LOC: EC 14:44 → 5NMEDONC 17:02
PROVIDERS: ADMIT Orthopaedic Surgery; ATTEND Orthopaedic Surgery
PROC: 0PSK04Z Reposition Right Ulna with Internal Fixation Device, Open Approach (ICD-10-PCS; principal; 2020-01-14)
PROC: 0PSH04Z Reposition Right Radius with Internal Fixation Device, Open Approach (ICD-10-PCS; principal; 2020-01-14)
DX: S52.031A Displaced fracture of olecranon process with intraarticular extension of right ulna, initial encounter for closed fracture (principal); I49.01 Ventricular fibrillation; I47.2 Ventricular tachycardia; S52.571A Other intraarticular fracture of lower end of right radius, initial encounter for closed fracture; E03.9 Hypothyroidism, unspecified; I44.0 Atrioventricular block, first degree; E11.9 Type 2 diabetes mellitus without complications; I25.5 Ischemic cardiomyopathy; I25.10 Atherosclerotic heart disease of native coronary artery without angina pectoris; E78.5 Hyperlipidemia, unspecified; I10 Essential (primary) hypertension; I25.2 Old myocardial infarction; Z79.82 Long term (current) use of aspirin; Z79.02 Long term (current) use of antithrombotics/antiplatelets; Z79.84 Long term (current) use of oral hypoglycemic drugs; Z79.890 Hormone replacement therapy; Z79.899 Other long term (current) drug therapy; Z95.810 Presence of automatic (implantable) cardiac defibrillator; Z95.1 Presence of aortocoronary bypass graft; Z86.73 Personal history of transient ischemic attack (TIA), and cerebral infarction without residual deficits; Z86.711 Personal history of pulmonary embolism; Z90.49 Acquired absence of other specified parts of digestive tract; Z87.19 Personal history of other diseases of the digestive system; Z90.710 Acquired absence of both cervix and uterus; Z98.1 Arthrodesis status; Z87.42 Personal history of other diseases of the female genital tract; Z98.890 Other specified postprocedural states; W20.8XXA Other cause of strike by thrown, projected or falling object, initial encounter; Y92.512 Supermarket, store or market as the place of occurrence of the external cause; Z81.8 Family history of other mental and behavioral disorders; Z82.49 Family history of ischemic heart disease and other diseases of the circulatory system
CPT/HCPCS: 29105; 36415; 64415; 71046; 76942; 80048; 80053; 85025; 93005; 93306; 99285

== ENCOUNTER 2022-08-01 03:40 | Inpatient (IN) | payer MEDICARE ==
[2022-08-01] MEDS ORDERED: LORazepam 2 MG/ML INJ IV STA ×2 (03:46→03:52)
[2022-08-01 03:48] LABS: Glucose,Whole Blood 229 mg/dL (70-110)
--- NOTE | 2022-08-01 03:56 | ED ---
General Adult HPI - General Chief complaint: Neuro Symptoms/Deficit Stated complaint: Facial Twitching Time Seen by Provider: 08/01/22 03:46 Source: patient, EMS Mode of arrival: EMS Limitations: no limitations - History of Present Illness Initial comments: Dictation was produced using [employer] dictation software. please excuse any grammatical, word or spelling errors. Chief Complaint: 86-year-old female past medical history of CVA presents via EMS from for altered mental status History of Present Illness: 86-year-old female presents to the emergency department for altered mental status. Patient is brought in by EMS from home. She is a new resident at [facility]. Pale she has a daze deficit to the left. She was also found have twitching of the face. Blood sugar was 214. The ROS documented in this emergency department record has been reviewed and confirmed by me. Those systems with pertinent positive or negative responses have been documented in the HPI. All other systems are other negative and/or noncontributory. - Related Data Home Medications Medication Instructions Recorded Confirmed Aspirin 81 mg PO DAILY 08/27/13 01/14/20 Carvedilol [Coreg] 12.5 mg PO BID-W/MEALS 08/27/13 01/14/20 Quinapril HCl [Accupril] 10 mg PO DAILY 08/27/13 01/14/20 glipiZIDE [Glucotrol] 5 mg PO BID-W/MEALS 08/27/13 01/14/20 Spironolactone [Aldactone] 12.5 mg PO DAILY 09/20/13 01/14/20 Simvastatin [Zocor] 40 mg PO DAILY 05/31/15 01/14/20 Levothyroxine Sodium [Synthroid] 88 mcg PO DAILY 09/20/17 01/14/20 Multivitamins, Thera [Multivitamin 1 tab PO DAILY 11/09/17 01/14/20 (formulary)] Sotalol HCl [Betapace] 80 mg PO BID-W/MEALS 01/14/20 01/14/20 metFORMIN HCL [Glucophage] 500 mg PO BID-W/MEALS 01/14/20 01/14/20 Previous Rx's Medication Instructions Recorded Docusate [Colace] 100 mg PO DAILY #21 capsule 01/17/20 Hydrocodone/Acetaminophen [[place] 1 each PO Q6HR PRN #28 tab 01/17/20 5325] Allergies Allergy/AdvReac Type Severity Reaction Status Date / Time No Known Allergies Allergy Verified 08/01/22 03:48 Review of Systems ROS Statement: Those systems with pertinent positive or pertinent negative responses have been documented in the HPI. ROS Other: All systems not noted in ROS Statement are negative. Past Medical History Past Medical History: CVA/TIA, Diabetes Mellitus, Myocardial Infarction (MT), Pulmonary Embolus (PE), Thyroid Disorder Additional Past Medical History / Comment(s): ventricular tachycardia, TIA 2013 Last Myocardial Infarction Date:: 2004 History of Any Multi-Drug Resistant Organisms: None Reported Past Surgical History: AICD, Cardiac Ablation, Cholecystectomy, Coronary Bypass/CABG, Hysterectomy Additional Past Surgical History / Comment(s): cervical fusion, quad. bypass Past Anesthesia/Blood Transfusion Reactions: No Reported Reaction Type of Cardiac Device: AICD Device Placement Date:: 2008 Past Psychological History: No Psychological Hx Reported Past Alcohol Use History: Rare Past Drug Use History: None Reported - Past Family History Mother Family Medical History: Dementia Father Family Medical History: Myocardial Infarction (MT) General Exam - General Exam Comments Initial Comments: PHYSICAL EXAM: General Impression: Alert and oriented x2/4, not in acute distress HEENT: Normocephalic atraumatic, extra-ocular movements intact, pupils equal and reactive to light bilaterally, mucous membranes moist. Cardiovascular: Heart regular rate and rhythm Chest: Able to complete full sentences, no retractions, no tachypnea Abdomen: abdomen soft, non-tender, non-distended, no organomegaly Musculoskeletal: Pulses present and equal in all extremities, no peripheral edema Motor: no focal deficits noted Neurological: Facial twitching to the left face with gaze deviation to the left Skin: Intact with no visualized rashes Limitations: no limitations Course Vital Signs 08/01/22 08/01/22 08/01/22 03:43 05:00 05:15 Temperature 97.1 F L Pulse Rate 68 114 H 98 Respiratory 18 18 18 Rate Blood Pressure 96/69 89/59 87/57 O2 Sat by Pulse 97 98 97 Oximetry 08/01/22 06:45 Temperature Pulse Rate 88 Respiratory 20 Rate Blood Pressure 93/73 O2 Sat by Pulse 94 L Oximetry - Reevaluation(s) Reevaluation #1: 08/01/22 06:51More history obtained from son was at the bedside. States that patient has history of major stroke. He also reports that patient's baseline blood pressure is 80 systolic. He reports that patient is DO NOT RESUSCITATE. Patient on diagnostic cardiac sonographer started to show some signs of ventricular tachycardia. She does have a ICD which appeared to have cardioverted the patient back to sinus rhythm Medical Decision Making - Medical Decision Making Was pt. sent in by a medical professional or institution (, PA, RETAIL CLIENT SOLUTIONS CONSULTANT, urgent care, hospital, or snf...) When possible be specific @ -No Did you speak to anyone other than the patient for history (EMS, parent, family, police, friend...)? What history was obtained from this source @ -History obtained from EMS as described in history present illness. More history obtained from son as described above Did you review nursing and triage notes (agree or disagree)? Why? @ -I reviewed and agree with nursing and triage notes Were old charts reviewed (outside hosp., previous admission, EMS record, old EKG, old radiological studies, urgent care reports/EKG's, snf records)? Report findings @ -Is reviewed showing the patient has history of stroke Differential Diagnosis (chest pain, altered mental status, abdominal pain women, abdominal pain men, vaginal bleeding, musculoskeletal, weakness, fever, dyspnea, syncope, headache, dizziness, GI bleed, back pain, seizure, CVA, palpatations, mental health)? @ -Differential Seizure: Recurrent seizure disorder, febrile seizure, alcohol withdrawal, stimulants, meningitis, encephalitis, intercranial hemorrhage, intracranial tumor, stroke, eclampsia, thyrotoxicosis, hypocalcemia, hyponatremia, hypernatremia, hypomagnesemia, psychogenic, this is not meant to be an all-inclusive list. EKG interpreted by me (3pts min.). @ -See above X-rays interpreted by me (1pt min.). @ -None done CT interpreted by me (1pt min.). @ -Computed tomography scan of brain shows encephalomalacia. No acute processes. CT angiography shows no large vessel occlusion. U/S interpreted by me (1pt. min.). @ -None done What testing was considered but not performed or refused? (CT, X-rays, U/S, labs)? Why? @ -None What meds were considered but not given or refused? Why? @ -None Did you discuss the management of the patient with other professionals (professionals i.e. , PA, RETAIL CLIENT SOLUTIONS CONSULTANT, lab, RT, psych nurse, manager social responsibility, pearl stringer, teacher, aadc plans staff officer, comsec manager)? Give summary @ -Case discussed with sound physician for admission. Case also discussed with Dr. Handley of neurology as described above Was smoking cessation discussed for >3mins.? @ -No Was critical care preformed (if so, how long)? @ -Yes, 73 minutes Were there social determinants of health that impacted care today? How? (Homelessness, low income, unemployed, alcoholism, drug addiction, transportation, low edu. Level, literacy, decrease access to med. care, halfway, rehab)? @ -No Was there de-escalation of care discussed even if they declined (Discuss DNR or withdrawal of care, Hospice)? DNR status @ -Patient is DO NOT RESUSCITATE, comfort by son at the bedside What co-morbidities impacted this encounter? (DM, HTN, Smoking, COPD, CAD, Cancer, CVA, ARF, Chemo, Hep., AIDS, mental health diagnosis, sleep apnea, morbid obesity)? @ -history of AICD, history of CVA Was patient admitted / discharged? Hospital course, mention meds given and route, prescriptions, significant lab abnormalities, going to OR and other pertinent info. @ -6-year-old female multiple comorbidities and DO NOT RESUSCITATE CODE STATUS presents to the ER for facial twitching. Clinical presentation suspicious for focal seizure. She did also have a bout of ventricular tachycardia that was cardioverted by her AICD. Patient is DO NOT RESUSCITATE according to son. He reports that her blood pressures baseline. Patient given Keppra and Ativan with resolution of facial twitching. She'll be admitted with consultation cardiology and neurology. Pending AICD interrogation Undiagnosed new problem with uncertain prognosis? @ -No Drug Therapy requiring intensive monitoring for toxicity (Heparin, Nitro, Insulin, Cardizem)? @ -No Were any procedures done? @ -No Diagnosis/symptom? Acute, or Chronic, or Acute on Chronic? Uncomplicated (without systemic symptoms) or Complicated (systemic symptoms)? @ -1. Focal seizure, 2. Ventricular tachycardia Side effects of treatment? @ -No Exacerbation, Progression, or Severe Exacerbation? @ -No Poses a threat to life or bodily function? How? (Chest pain, [place], MT, pneumonia, PE, COPD, DKA, ARF, appy, cholecystitis, CVA, Diverticulitis, Homicidal, Suicidal, threat to staff... and all critical care pts) @ -yes - Lab Data Result diagrams: 08/01/22 03:55 08/01/22 03:55 Lab Results 08/01/22 08/01/22 08/01/22 Range/Units 03:46 03:55 03:55 WBC 7.5 (3.8-10.6) k/uL RBC 3.16 L (3.80-5.40) m/uL Hgb 10.0 L (11.4-16.0) gm/dL Hct 30.9 L (34.0-46.0) % MCV 98.0 (80.0-100.0) fL MCH 31.7 (25.0-35.0) pg MCHC 32.4 (31.0-37.0) g/dL RDW 13.7 (11.5-15.5) % Plt Count 170 (150-450) k/uL MPV 9.0 Neutrophils % 77 % Lymphocytes % 16 % Monocytes % 5 % Eosinophils % 1 % Basophils % 0 % Neutrophils # 5.8 (1.3-7.7) k/uL Lymphocytes # 1.2 (1.0-4.8) k/uL Monocytes # 0.3 (0-1.0) k/uL Eosinophils # 0.0 (0-0.7) k/uL Basophils # 0.0 (0-0.2) k/uL PT 12.1 H (9.0-12.0) sec INR 1.2 H (<1.2) APTT 22.3 (22.0-30.0) sec Sodium (137-145) mmol/L Potassium (3.5-5.1) mmol/L Chloride (98-107) mmol/L Carbon Dioxide (22-30) mmol/L Anion Gap mmol/L BUN (7-17) mg/dL Creatinine (0.52-1.04) mg/dL Est GFR (CKD-EPI)AfAm (>60 ml/min/1.73 sqM) Est GFR (CKD-EPI)NonAf (>60 ml/min/1.73 sqM) Glucose (74-99) mg/dL POC Glucose (mg/dL) 229 H (70-110) mg/dL POC Glu Railcar Switchman ID Mel iQu Calcium (8.4-10.2) mg/dL Total Bilirubin (0.2-1.3) mg/dL AST (14-36) U/L ALT (4-34) U/L Alkaline Phosphatase (38-126) U/L Creatine Kinase (30-135) U/L Troponin I (0.000-0.034) ng/mL Total Protein (6.3-8.2) g/dL Albumin (3.5-5.0) g/dL 08/01/22 08/01/22 Range/Units 03:55 03:55 WBC (3.8-10.6) k/uL RBC (3.80-5.40) m/uL Hgb (11.4-16.0) gm/dL Hct (34.0-46.0) % MCV (80.0-100.0) fL MCH (25.0-35.0) pg MCHC (31.0-37.0) g/dL RDW (11.5-15.5) % Plt Count (150-450) k/uL MPV Neutrophils % % Lymphocytes % % Monocytes % % Eosinophils % % Basophils % % Neutrophils # (1.3-7.7) k/uL Lymphocytes # (1.0-4.8) k/uL Monocytes # (0-1.0) k/uL Eosinophils # (0-0.7) k/uL Basophils # (0-0.2) k/uL PT (9.0-12.0) sec INR (<1.2) APTT (22.0-30.0) sec Sodium 130 L (137-145) mmol/L Potassium 4.5 (3.5-5.1) mmol/L Chloride 98 (98-107) mmol/L Carbon Dioxide 23 (22-30) mmol/L Anion Gap 9 mmol/L BUN 25 H (7-17) mg/dL Creatinine 0.91 (0.52-1.04) mg/dL Est GFR (CKD-EPI)AfAm 65 (>60 ml/min/1.73 sqM) Est GFR (CKD-EPI)NonAf 57 (>60 ml/min/1.73 sqM) Glucose 222 H (74-99) mg/dL POC Glucose (mg/dL) (70-110) mg/dL POC Glu Railcar Switchman ID Calcium 8.6 (8.4-10.2) mg/dL Total Bilirubin 1.1 (0.2-1.3) mg/dL AST 21 (14-36) U/L ALT 17 (4-34) U/L Alkaline Phosphatase 35 L (38-126) U/L Creatine Kinase <20 L (30-135) U/L Troponin I 0.071 H* (0.000-0.034) ng/mL Total Protein 5.8 L (6.3-8.2) g/dL Albumin 3.5 (3.5-5.0) g/dL Disposition Clinical Impression: Seizure, V-tach Disposition: ADMITTED IP TO THIS HOSP Condition: Serious Referrals: Denis Delgado MD [Primary Care Provider] - 1-2 days Decision Time: 06:00
[2022-08-01 04:18] LABS: ALT 17 U/L (4-34); AST 21 U/L (14-36); African American GFR (CKD) 65 (>60 ml/min/1.73 sqM); Albumin 3.5 g/dL (3.5-5.0); Alkaline Phosphatase 35 U/L (38-126); Anion Gap 9 mmol/L; Blood Urea Nitrogen 25 mg/dL (7-17); Calcium 8.6 mg/dL (8.4-10.2); Carbon Dioxide 23 mmol/L (22-30); Chloride 98 mmol/L (98-107); Creatine Kinase <20 U/L (30-135); Glucose 222 mg/dL (74-99); Non-African American GFR(CKD) 57 (>60 ml/min/1.73 sqM); Potassium 4.5 mmol/L (3.5-5.1); Sodium 130 mmol/L (137-145); Total Bilirubin 1.1 mg/dL (0.2-1.3); Total Protein 5.8 g/dL (6.3-8.2)
--- NOTE | 2022-08-01 04:36 | CT ---
EXAM: CT Head Without Intravenous Contrast CLINICAL HISTORY: ITS.REASON CT Reason: Neuro deficit, acute, stroke suspected TECHNIQUE: Axial computed tomography images of the head/brain without intravenous contrast. CTDI is 52.9 mGy and DLP is 800 mGy-cm. This CT exam was performed using one or more of the following dose reduction techniques: automated exposure control, adjustment of the mA and/or kV according to patient size, and/or use of iterative reconstruction technique. COMPARISON: Comparison made to prior head CT from May 31, 2015. FINDINGS: Brain: Remote ischemic injuries of the right frontal, parietal and temporal lobes and left frontal lobe with encephalomalacia and gliosis. Small to moderate ischemic injury of the left cerebellum. No hemorrhage. No significant white matter disease. No edema. Ventricles: Unremarkable. No ventriculomegaly. Bones/joints: Unremarkable. No acute fracture. Soft tissues: Bilateral lens replacements. Sinuses: Unremarkable as visualized. No acute sinusitis. Mastoid air cells: Unremarkable as visualized. No mastoid effusion. IMPRESSION: No evidence of acute intracranial pathology.
[2022-08-01 04:37] LABS: Basophils % (A) 0 %; Eosinophils % (A) 1 %; HCT 30.9 % (34.0-46.0); Lymphocytes # (A) 1.2 k/uL (1.0-4.8); Lymphocytes % (A) 16 %; MCH 31.7 pg (25.0-35.0); MCHC 32.4 g/dL (31.0-37.0); Monocytes # (A) 0.3 k/uL (0-1.0); Monocytes % (A) 5 %; Neutrophils # (A) 5.8 k/uL (1.3-7.7); Neutrophils % (A) 77 %; Platelet Count 170 k/uL (150-450); RBC 3.16 m/uL (3.80-5.40); RDW 13.7 % (11.5-15.5); WBC 7.5 k/uL (3.8-10.6)
[2022-08-01] MEDS ORDERED: levETIRAcetam IV 500 MG/5 ML VIAL IVP STA (04:38)
--- NOTE | 2022-08-01 04:43 | CT ---
EXAM: CT Angiography Head With Intravenous Contrast CLINICAL HISTORY: ITS.REASON CT Reason: STROKE TECHNIQUE: Axial computed tomographic angiography images of the head with intravenous contrast. CTDI is 48.8 mGy and DLP is 841.3 mGy-cm. This CT exam was performed using one or more of the following dose reduction techniques: automated exposure control, adjustment of the mA and/or kV according to patient size, and/or use of iterative reconstruction technique. MIP reconstructed images were created and reviewed. COMPARISON: No relevant prior studies available. FINDINGS: Right internal carotid artery: No acute findings. Intracranial segment is patent with no significant stenosis. No aneurysm. Right anterior cerebral artery: Unremarkable. No occlusion or significant stenosis. No aneurysm. Right middle cerebral artery: Expected pruning in the area of remote ischemic injury. No aneurysm. Right posterior cerebral artery: Unremarkable. No occlusion or significant stenosis. No aneurysm. Right vertebral artery: Unremarkable as visualized. Left internal carotid artery: No acute findings. Intracranial segment is patent with no significant stenosis. No aneurysm. Left anterior cerebral artery: Unremarkable. No occlusion or significant stenosis. No aneurysm. Left middle cerebral artery: Expected pruning in the area of remote ischemic injury. No aneurysm. Left posterior cerebral artery: Unremarkable. No occlusion or significant stenosis. No aneurysm. Left vertebral artery: Unremarkable as visualized. Basilar artery: Unremarkable. No occlusion or significant stenosis. No aneurysm. IMPRESSION: Expected pruning in the areas of remote ischemic injury. Otherwise, negative CT angiogram of the head. EXAM: CT Neck With Intravenous Contrast CLINICAL HISTORY: ITS.REASON CT Reason: STROKE TECHNIQUE: Routine carotid CT protocol was performed with intravenous contrast. NASCET criteria using the distal ICAs for comparison were used for evaluation of stenoses. CTDI is 0 mGy and DLP is 0 mGy-cm. This CT exam was performed using one or more of the following dose reduction techniques: automated exposure control, adjustment of the mA and/or kV according to patient size, and/or use of iterative reconstruction technique. COMPARISON: None. FINDINGS: Ascending aortic aneurysm measuring 39 mm in diameter. VASCULATURE: Right common carotid artery: Unremarkable. No occlusion or significant stenosis. No dissection. Right internal carotid artery: Unremarkable. Extracranial segment is patent with no occlusion or significant stenosis. No dissection. Right external carotid artery: Unremarkable. No occlusion. Right vertebral artery: Unremarkable. No occlusion or significant stenosis. No dissection. Left common carotid artery: Unremarkable. No occlusion or significant stenosis. No dissection. Left internal carotid artery: Unremarkable. Extracranial segment is patent with no occlusion or significant stenosis. No dissection. Left external carotid artery: Unremarkable. No occlusion. Left vertebral artery: Unremarkable. No occlusion or significant stenosis. No dissection. NECK: Bones/joints: Status post anterior cervical fusion of C4-C7 with expected postsurgical changes.. Soft tissues: Unremarkable. Lung apices: Clear. CAROTID STENOSIS REFERENCE USING NASCET CRITERIA: % ICA stenosis = (1 - narrowest ICA diameter/diameter of distal cervical ICA) x 100. Mild - <50% stenosis. Moderate - 50-69% stenosis. Severe - 70-94% stenosis. Near occlusion - 95-99% stenosis. Occluded - 100% stenosis. IMPRESSION: Negative CTA neck.
[2022-08-01 04:57] LABS: INR 1.2 (<1.2); Partial Thromboplastin Time 22.3 sec (22.0-30.0); Prothrombin Time 12.1 sec (9.0-12.0)
[2022-08-01] MEDS ORDERED: ASPIRIN 300 MG SUPP RECTAL STA (05:07)
--- NOTE | 2022-08-01 05:39 | XR ---
EXAM: XR Chest, 1 View CLINICAL HISTORY: ITS.REASON XR Reason: altered mental status TECHNIQUE: Frontal view of the chest. COMPARISON: Comparison made to prior chest x-ray from January 14, 2020. FINDINGS: Lungs: Mild to moderate peribronchial thickening of the central and lower lobe bronchi. There is a patchy opacity at the left lung base with obscuration of the left hemidiaphragm. Pleural space: Unremarkable. No pneumothorax. Heart: Mild cardiomegaly. AICD in the left chest wall with distal catheter in the right ventricle. Mediastinum: Unremarkable. Bones/joints: Status post anterior fusion at distal cervical spine. IMPRESSION: Findings concerning for bronchitis, which may be of infectious or inflammatory etiologies. Possible left lower lobe infiltrate.
[2022-08-01] MEDS ORDERED: NALOXONE 0.4 MG/ML 1 ML VIAL IV PRN (07:10)
[2022-08-01] MEDS ORDERED: MORPHINE SULFATE 4 MG/ML SYRINGE IM STA (07:59)
[2022-08-01] MEDS ORDERED: ONDANSETRON 4 MG/2 ML VIAL IVP PRN (08:15)
[2022-08-01] MEDS ORDERED: ARTIFICIAL TEARS-HYPROMELLOSE DROPS 15 ML BTL BOTH EYES PRN (08:15)
[2022-08-01] MEDS ORDERED: DRY MOUTH SPRAY 44.3 SPRAY/44.3 ML SPRAY MUCOUS MEM PRN (08:15)
[2022-08-01] MEDS ORDERED: ATROPINE OPHTH SOLN 1% 5ML BTL SUBLINGUAL PRN (08:15)
[2022-08-01] MEDS ORDERED: GLYCOPYRROLATE 0.2 MG/ML 2 ML VIAL IVP PRN (08:15)
[2022-08-01] MEDS ORDERED: ACETAMINOPHEN SUPPOSITORY 650 MG SUPP RECTAL PRN (08:15)
[2022-08-01] MEDS ORDERED: LORazepam 2 MG/ML INJ IV PRN (08:22)
[2022-08-01] MEDS: SODIUM CHLORIDE 0.9% 1,000 ML IV SCH ×2 (10:23→16:47)
[2022-08-01] MEDS: MORPHINE SULFATE 4 MG/ML SYRINGE IV PRN ×3 (10:23→16:49)
--- NOTE | 2022-08-01 10:29 | P.HPIM ---
History of Present Illness H&P Date: 08/01/22 Patient is an 86-year-old female with a history of prior stroke, diabetes, hypothyroidism, myocardial infarction, pulmonary embolism, and is status post AICD for ventricular tachycardia who presented to the ER for left-sided facial twitching. On arrival to the ER vital signs within normal limits. Laboratory analysis was remarkable for hemoglobin 10, sodium 1:30, glucose 229, alkaline ph osphatase 35, creatinine kinase less than 20, and troponin of 0.071. CT had demonstrated remote ischemic changes in the right frontal, parietal, temporal lobes in the left frontal lobe with encephalomalacia and gliosis but no acute intracranial pathology. CT of the head and neck demonstrated extensive pruning in the areas of abnormal ischemic injury but otherwise unremarkable. Chest x- rays demonstrated findings concerning for bronchitis with possible left lower lobe infiltrate. The ER she was noted to have left-sided facial twitching. Neurology was contacted and the patient was given Ativan and then Keppra with resolution of the left sided facial twitching. She did have an episode of v entricular tachycardia which was aborted by her AICD. Patient seen and examined at bedside. She is sedated from the Ativan but opens her eyes to tactile stimuli. He one son is present at bedside and another son arrives during my visit. She has been doing well the last week. No cough, no fevers, no unual behaviors. She is typically independent in most things. She uses a walker and has no residual LE or UE weakness from her prior CVA. She was out to lunch with her friends on . Her son arrives and states that they were in the midst of transition the patient to comfort measure and that she has a formal DNR. They have recently been evluating the patient for cancer, it appears to be pancreatic but she declined further testing and wanted to be kept comfrotable. They would like to sign her on to comfort measures. Vital signs reviewed General: ill appaering, palor, no distress, appears at stated age. Derm: Cool, dry Eyes: EOMI, no lid lag, anicteric sclera, pupils equal round reactive to light ENT: Nose and ears atraumatic, no thrush, no pharyngeal erythema Cardiovascular: S1S2 reg, no murmur, positive posterior tibial pulse bilateral, no edema, capillary refill less than 2 seconds Lungs: clear to auscultation bilateral, no rhonchi, no rales, no wheeze, no accessory muscle use Abdominal: soft, nontender to palpation, no guarding, no appreciable organomegaly, normal bowel sounds Ext: no gross muscle atrophy, muscle strength 5 out of 5 in all 4 extremities, no contractures Neuro: PEERL, EOMI, does not follow commands for further formal neurologic testing, moving b/l upper extremites indepednently. Psych: Alert, oriented, appropriate affect Assessment/Plan: Left-sided facial twitching in the setting of prior large right sided CVA Ventricular tachycardia, recurrent Hyponatremia Elevated troponin Diabetes mellitus type 2 with hyperglycemia Chronic: Hypothyroidism Myocardial infarction History of pulmonary embolism History of Ventricular tachycardia status post AICD - start patient on comfort orders. Apply magnet to pacemarker/AICD - Morphine 4 mg IVP X 1 now and then coby hour as need for comfort if needed more than that will consider morphine gtt. - Ativan 1 mg q 1 hours prn agitaiton - keep Keppra going for 1000mg q 12 hours for comfort from seizure - Comfort medications ordered. - cancel all consults and diagnostic testing. - Consult Hospice Imaging: as per HPI Data Review: as Per HPI The patient is admitted with an anticipated greater than 2 midnight stay for evaluation of seizures. Surrogate decision-maker: Son CODE STATUS:DNR This dictation was prepared using [employer] voice recognition software. Though every attempt is made to correct errors during dictation some may still exist. Past Medical History Past Medical History: CVA/TIA, Diabetes Mellitus, Myocardial Infarction ([place]), Pulmonary Embolus ([place]), Thyroid Disorder Additional Past Medical History / Comment(s): ventricular tachycardia, TIA 2013 Last Myocardial Infarction Date:: 2004 History of Any Multi-Drug Resistant Organisms: None Reported Past Surgical History: AICD, Cardiac Ablation, Cholecystectomy, Coronary Bypass/CABG, Hysterectomy Additional Past Surgical History / Comment(s): cervical fusion, quad. bypass Past Anesthesia/Blood Transfusion Reactions: No Reported Reaction Type of Cardiac Device: AICD Device Placement Date:: 2008 Past Psychological History: No Psychological Hx Reported Past Alcohol Use History: Rare Past Drug Use History: None Reported - Past Family History Mother Family Medical History: Dementia Father Family Medical History: Myocardial Infarction ([place]) Medications and Allergies Home Medications Medication Instructions Recorded Confirmed Type Aspirin 81 mg PO DAILY 08/27/13 01/14/20 History Carvedilol [Coreg] 12.5 mg PO BID-W/MEALS 08/27/13 01/14/20 History Quinapril HCl [Accupril] 10 mg PO DAILY 08/27/13 01/14/20 History glipiZIDE [Glucotrol] 5 mg PO BID-W/MEALS 08/27/13 01/14/20 History Spironolactone [Aldactone] 12.5 mg PO DAILY 09/20/13 01/14/20 History Simvastatin [Zocor] 40 mg PO DAILY 05/31/15 01/14/20 History Levothyroxine Sodium [Synthroid] 88 mcg PO DAILY 09/20/17 01/14/20 History Multivitamins, Thera [Multivitamin 1 tab PO DAILY 11/09/17 01/14/20 History (formulary)] Sotalol HCl [Betapace] 80 mg PO BID-W/MEALS 01/14/20 01/14/20 History metFORMIN HCL [Glucophage] 500 mg PO BID-W/MEALS 01/14/20 01/14/20 History Docusate [Colace] 100 mg PO DAILY #21 capsule 01/17/20 Rx Hydrocodone/Acetaminophen [Nabb 1 each PO Q6HR PRN #28 tab 01/17/20 Rx 5-325] Allergies Allergy/AdvReac Type Severity Reaction Status Date / Time No Known Allergies Allergy Verified 08/01/22 03:48 Physical Exam Osteopathic Statement: *. No significant issues noted on an osteopathic struct ural exam other than those noted in the History and Physical/Consult. Vitals: Vital Signs Temp Pulse Resp BP Pulse Ox 08/01/22 06:45 88 20 93/73 94 L 08/01/22 05:15 98 18 87/57 97 08/01/22 05:00 114 H 18 89/59 98 08/01/22 03:43 97.1 F L 68 18 96/69 97 Intake and Output 07/31/22 08/01/22 08/01/22 22:59 06:59 14:59 Other: Weight 59.421 kg Results CBC & Chem 7: 08/01/22 03:55 08/01/22 03:55 Labs: Abnormal Lab Results - Last 24 Hours (Table) 08/01/22 08/01/22 08/01/22 Range/Units 03:46 03:55 03:55 RBC 3.16 L (3.80-5.40) m/uL Hgb 10.0 L (11.4-16.0) gm/dL Hct 30.9 L (34.0-46.0) % PT 12.1 H (9.0-12.0) sec INR 1.2 H (<1.2) Sodium (137-145) mmol/L BUN (7-17) mg/dL Glucose (74-99) mg/dL POC Glucose (mg/dL) 229 H (70-110) mg/dL Alkaline Phosphatase (38-126) U/L Creatine Kinase (30-135) U/L Troponin I (0.000-0.034) ng/mL Total Protein (6.3-8.2) g/dL 08/01/22 08/01/22 Range/Units 03:55 03:55 RBC (3.80-5.40) m/uL Hgb (11.4-16.0) gm/dL Hct (34.0-46.0) % PT (9.0-12.0) sec INR (<1.2) Sodium 130 L (137-145) mmol/L BUN 25 H (7-17) mg/dL Glucose 222 H (74-99) mg/dL POC Glucose (mg/dL) (70-110) mg/dL Alkaline Phosphatase 35 L (38-126) U/L Creatine Kinase <20 L (30-135) U/L Troponin I 0.071 H* (0.000-0.034) ng/mL Total Protein 5.8 L (6.3-8.2) g/dL
[2022-08-01] MEDS ORDERED: levETIRAcetam IV 1,000 MG in SODIUM CHLORIDE 0.9% 250 ML IVPB SCH (12:00)
[2022-08-01] MEDS: levETIRAcetam IV 500 MG/5 ML VIAL IVP SCH ×2 (13:14→23:34)
[2022-08-02] MEDS: SODIUM CHLORIDE 0.9% 1,000 ML IV SCH ×3 (06:01→17:04)
[2022-08-02] MEDS: levETIRAcetam IV 500 MG/5 ML VIAL IVP SCH ×2 (12:56→23:30)
--- NOTE | 2022-08-02 16:12 | P.PN ---
Subjective Progress Note Date: 08/02/22 Patient is an 86-year-old female with a history of prior stroke, diabetes, hypothyroidism, myocardial infarction, pulmonary embolism, and is status post AICD for ventricular tachycardia who presented to the ER for left-sided facial twitching. On arrival to the ER vital signs within normal limits. Laboratory analysis was remarkable for hemoglobin 10, sodium 1:30, glucose 229, alkaline phosphatase 35, creatinine kinase less than 20, and troponin of 0.071. CT had demonstrated remote ischemic changes in the right frontal, parietal, temporal lobes in the left frontal lobe with encephalomalacia and gliosis but no acute intracranial pathology. CT of the head and neck demonstrated extensive pruning in the areas of abnormal ischemic injury but otherwise unremarkable. Chest x- rays demonstrated findings concerning for bronchitis with possible left lower lobe infiltrate. The ER she was noted to have left-sided facial twitching. Neurology was contacted and the patient was given Ativan and then Keppra with resolution of the left sided facial twitching. She did have an episode of ventricular tachycardia which was aborted by her AICD. Decision was made to place the patient on comfort measures. Patient was confirmed to be DNR and DNI. Patient was seen and examined. She is much more alert and responsive today per family. Her would like to take her home. He is aware that her AICD has b een stopped and she is at risk for ventricular arrhythmia and sudden . Her and son Jefry confirms her DO NOT RESUSCITATE and DO NOT INTUBATE status. They're open to having hospice evaluate the patient. She will need PT and OT evaluation prior to discharge. General: non toxic, no distress, appears at stated age Derm: warm, dry Head: atraumatic, normocephalic, symmetric, left sided facial twitching Eyes: EOMI, no lid lag, anicteric sclera Mouth: no lip lesion, mucus membranes moist Cardiovascular: good distal perfusion in all 4 extremities Lungs: no accessory muscle use Ext: no gross muscle atrophy, no edema, no contractures Left-sided facial twitching in the setting of prior large right sided CVA Ventricular tachycardia, recurrent Hyponatremia Elevated troponin Diabetes mellitus type 2 with hyperglycemia PT and OT has been consulted to work with this patient. We will have hospice re-evaluate this patient. It does not appear that family is against hospice care. Unsure if patient will be able to return back to her assisted living. Speech therapy consulted for swallow evaluation. Patient is DNR/DNI. Continue comfort measures. Objective - Vital Signs Vital signs: Vital Signs Temp 98.6 F 08/02/22 13:23 Pulse 85 08/02/22 13:23 Resp 16 08/02/22 13:23 BP 147/65 08/02/22 13:23 Pulse Ox 96 08/02/22 13:23 FiO2 Intake & Output 08/01/22 08/02/22 08/02/22 18:59 06:59 18:59 Intake Total 0 160 Output Total 100 Balance -100 160 Weight 59.421 kg Intake: Intake, IV Titration 160 Amount Sodium Chloride 0.9% 1, 160 000 ml @ 110 mls/hr IV . Q9H6M [facility] Rx#:[id number] Oral 0 Output: Urine 100 Other: Voiding Method Indwelling Catheter - Labs CBC & Chem 7: 08/01/22 03:55 08/01/22 03:55
[2022-08-03] MEDS: SODIUM CHLORIDE 0.9% 1,000 ML IV SCH ×3 (06:29→23:05)
--- NOTE | 2022-08-03 09:41 | P.PN ---
Subjective Progress Note Date: 08/03/22 Patient is an 86-year-old female with a history of prior stroke, diabetes, hypothyroidism, myocardial infarction, pulmonary embolism, and is status post AICD for ventricular tachycardia who presented to the ER for left-sided facial twitching. On arrival to the ER vital signs within normal limits. Laboratory analysis was remarkable for hemoglobin 10, sodium 1:30, glucose 229, alkaline phosphatase 35, creatinine kinase less than 20, and troponin of 0.071. CT had demonstrated remote ischemic changes in the right frontal, parietal, temporal lobes in the left frontal lobe with encephalomalacia and gliosis but no acute intracranial pathology. CT of the head and neck demonstrated extensive pruning in the areas of abnormal ischemic injury but otherwise unremarkable. Chest x- rays demonstrated findings concerning for bronchitis with possible left lower lobe infiltrate. The ER she was noted to have left-sided facial twitching. Neurology was contacted and the patient was given Ativan and then Keppra with resolution of the left sided facial twitching. She did have an episode of ventricular tachycardia which was aborted by her AICD. Decision was made to place the patient on comfort measures. Patient was confirmed to be DNR and DNI. Patient was seen and examined. She is much more alert and responsive today. Sitting up in a chair. Her would like to take her home. He is aware that her AICD has been stopped and she is at risk for ventricular arrhythmia and sudden . Her and son Jefry confirms her DO NOT RESUSCITATE and DO NOT INTUBATE status. Plans for hospice to meet with the family around 11:30. Anticipate discharge back home with hospice. General: non toxic, no distress, appears at stated age Derm: warm, dry Head: atraumatic, normocephalic, symmetric, left sided facial twitching Eyes: EOMI, no lid lag, anicteric sclera Mouth: no lip lesion, mucus membranes moist Cardiovascular: good distal perfusion in all 4 extremities Lungs: no accessory muscle use Ext: no gross muscle atrophy, no edema, no contractures Left-sided facial twitching in the setting of prior large right sided CVA Ventricular tachycardia, recurrent Hyponatremia Elevated troponin Diabetes mellitus type 2 with hyperglycemia PT and OT has been consulted to work with this patient. We will have hospice re-evaluate this patient. Speech therapy consulted for swallow evaluation. [employer] called to discontinue AICD. Patient is DNR/DNI. Continue comfort measures. Objective - Vital Signs Vital signs: Vital Signs Temp 97.9 F 08/03/22 07:29 Pulse 72 08/03/22 07:29 Resp 16 08/03/22 07:29 BP 82/57 08/03/22 07:29 Pulse Ox 98 08/03/22 07:49 FiO2 Intake & Output 08/02/22 08/03/22 08/03/22 18:59 06:59 18:59 Output Total 100 225 Balance -100 -225 Output: Urine 100 225 Other: Voiding Method Indwelling Catheter Indwelling Catheter Indwelling Catheter # Voids 1 - Labs CBC & Chem 7: 08/01/22 03:55 08/01/22 03:55
[2022-08-03] MEDS: levETIRAcetam IV 500 MG/5 ML VIAL IVP SCH ×2 (11:46→21:29)
[2022-08-04 05:41] VITALS: RESP 18
[2022-08-04 08:16] VITALS: BP 102/73; PULSE 66; TEMP 96.5
[2022-08-04] MEDS: SODIUM CHLORIDE 0.9% 1,000 ML IV SCH (09:13)
--- NOTE | 2022-08-04 09:24 | P.DS ---
Providers Date of admission: 08/01/22 07:10 Expected date of discharge: 08/04/22 Attending physician: Nimisha Machado DO Primary care physician: Denis Delgado MD Hospital Course: Patient is an 86-year-old female with a history of prior stroke, diabetes, hypothyroidism, myocardial infarction, pulmonary embolism, and is status post AICD for ventricular tachycardia who presented to the ER for left-sided facial twitching. On arrival to the ER vital signs within normal limits. Laboratory analysis was remarkable for hemoglobin 10, sodium 1:30, glucose 229, alkaline phosphatase 35, creatinine kinase less than 20, and troponin of 0.071. CT had demonstrated remote ischemic changes in the right frontal, parietal, temporal lobes in the left frontal lobe with encephalomalacia and gliosis but no acute intracranial pathology. CT of the head and neck demonstrated extensive pruning in the areas of abnormal ischemic injury but otherwise unremarkable. Chest x- rays demonstrated findings concerning for bronchitis with possible left lower lo be infiltrate. The ER she was noted to have left-sided facial twitching. Neurology was contacted and the patient was given Ativan and then Keppra with resolution of the left sided facial twitching. She did have an episode of ventricular tachycardia which was aborted by her AICD. Decision was made to place the patient on comfort measures. Patient's clinical condition improved during her hospitalization. She was more awake and alert. Her was adamant about taking her home. He was aware that her AICD has been stopped and she is at risk for ventricular arrhythmia and sudden . [employer] was called to stop her AICD. Her and son Jefry confirmed her DO NOT RESUSCITATE and DO NOT INTUBATE status. Patient was evaluated by hospice and plan was to discharge back to assisted living with hospice services. Delay in discharge on 08/03 due to hospital bed delivery. Patient was seen and examined on 08/04. Patient reported feeling well and denied any complaints. Pertinent studies include CT brain, CTA head and neck, CXR. General: non toxic, no distress, appears at stated age Derm: warm, dry Head: atraumatic, normocephalic, symmetric, left sided facial twitching Eyes: EOMI, no lid lag, anicteric sclera Mouth: no lip lesion, mucus membranes moist Cardiovascular: good distal perfusion in all 4 extremities Lungs: no accessory muscle use Ext: no gross muscle atrophy, no edema, no contractures Discharge Diagnosis: Left-sided facial twitching in the setting of prior large right sided CVA Ventricular tachycardia, recurrent Hyponatremia Elevated troponin Diabetes mellitus type 2 with hyperglycemia This complex discharge took 35 minutes to complete. Patient Condition at Discharge: Serious Plan - Discharge Summary New Discharge Prescriptions: New levETIRAcetam ORAL SOLN [Keppra Oral Soln] 10 mg PO BID #600 ml Discontinued glipiZIDE [Glucotrol] 5 mg PO BID Levothyroxine Sodium [Synthroid] 88 mcg PO AC-BRKFST metFORMIN HCL [Glucophage] 500 mg PO BID Potassium Chloride ER [K-Dur 20] 20 meq PO DAILY oxyBUTYnin chloride [Ditropan] 5 mg PO BID carvediloL [Coreg] 6.25 mg PO BID-W/MEALS Furosemide [Lasix] 20 mg PO DAILY Docusate [Colace] 100 mg PO Q12H PRN PRN Reason: Constipation lisinopriL [Zestril] 10 mg PO DAILY Apixaban [Eliquis] 2.5 mg PO BID Lactose-Reduced Food [Boost] 237 ml PO TID-W/MEALS Discharge Medication List levETIRAcetam ORAL SOLN [Keppra Oral Soln] 10 mg PO BID #600 ml 08/03/22 [Rx] Follow up Appointment(s)/Referral(s): Denis Delgado MD [Primary Care Provider] - 1-2 days Patient Instructions/Handouts: Levetiracetam (By mouth) Activity/Diet/Wound Care/Special Instructions: [facility] - Discharge Disposition: HOME WITH HOSPICE
--- NOTE | 2022-08-05 14:47 | CDI ---
Documentation Clarification Form Date: 08/05/2022 02:16:51 PM From: Amada Phelps RN CCDS Phone: [phone] Admit Date: 08/01/2022 07:10:00 AM Patient Name: Marce Marti I Visit Number: [id number] Discharge Date: 08/04/2022 10:10:00 AM ATTENTION: The Clinical Documentation Specialists (CDI) and [facility] Coding Staff appreciate your assistance in clarifying documentation. Please respond to the clarification below the line at the bottom and electronically sign. The CDI & [facility] Coding staff will review the response and follow-up if needed. Please note: Queries are made part of the Legal Health Record. If you have any questions, please contact the author of this message via ITS. Dr. Delvis Verdenam The patients principal diagnosis the diagnosis that was chiefly responsible for the admission - has not been clearly identified and clarification is requested. The patient presented with twitching of the face. History/Risk factors: 86-year-old female presents to the ED from assisted living with twitching of the face and a daze deficit to the left. Medical History: DM2, [place], Hypothyroidism, History of Ventricular tachycardia status post AICD. 08/01, H&P. Clinical Indicators: Lab findings: 08/01 Hgb 10.0; Inr 1.2; BUN 25; Glucose 222; Alk phos 35; Trop 0.071 ED note, 08/01: She did have an episode of ventricular tachycardia which was aborted by her AICD. H&P, 08/01: The ER she was noted to have left-sided facial twitching. Neurology was contacted and the patient was given Ativan and then Keppra with resolution of the left sided facial twitching. Radiology findings: 08/01:CT Brain: Remote ischemic injuries of the right frontal, parietal and temporal lobes and left frontal lobe encephalomalacia and gliosis. Small to moderate ischemic injury of the left cerebellum. 08/01: CT angiography Brain : Expected pruning in the areas of remote ischemic injury. Vital Signs: 08/01 B/P 96/69; HR 68; Temp 97.1F Axillary; RR 18; SpO2 97% room air Treatment: Neurology and Cardiology consults were cancelled do to comfort measure order. Ativan x1; Keppra x 1.; Patient discharged on Levetriacetam oral solution In your professional opinion, can you please clarify which diagnosis, after study, was the reason chiefly responsible for the admission? [ x ] Left sided facial twitching due to Seizure [ ] Left sided facial twitching due to Prior large right sided CVA [ ] Other, please specify [ ] Unable to determine (Template Last Revised: April 2020) MTDD
== END 2022-08-04 10:10 | disposition hospice, home (50) | DRG 101 ==
LOC: EC 03:40 → 3SCARD 07:10 → 5NMEDONC 08:13
PROVIDERS: ADMIT Internal Medicine; ATTEND Internal Medicine
DX: R56.9 Unspecified convulsions (principal); I47.20 Ventricular tachycardia, unspecified; E87.1 Hypo-osmolality and hyponatremia; G93.89 Other specified disorders of brain; E03.9 Hypothyroidism, unspecified; E11.65 Type 2 diabetes mellitus with hyperglycemia; Z66 Do not resuscitate; J40 Bronchitis, not specified as acute or chronic; R77.8 Other specified abnormalities of plasma proteins; R25.3 Fasciculation; Z51.5 Encounter for palliative care; Z95.1 Presence of aortocoronary bypass graft; Z95.810 Presence of automatic (implantable) cardiac defibrillator; Z86.73 Personal history of transient ischemic attack (TIA), and cerebral infarction without residual deficits; Z86.711 Personal history of pulmonary embolism; I25.2 Old myocardial infarction; Z79.899 Other long term (current) drug therapy; Z79.84 Long term (current) use of oral hypoglycemic drugs; Z79.890 Hormone replacement therapy; Z79.82 Long term (current) use of aspirin; Z82.49 Family history of ischemic heart disease and other diseases of the circulatory system; Z82.0 Family history of epilepsy and other diseases of the nervous system
CPT/HCPCS: 36415; 51702; 70450; 70496; 70498; 71045; 80053; 82550; 84484; 85025; 85610; 85730; 93005; 94760; 96372; 96374; 96375; 96376; 99291